=== PATIENT | female | born 1955 | race Caucasian/White ===

== ENCOUNTER 2018-08-16 21:02 | Inpatient (IN) | payer BC ==
[~2018-08-16] VITALS: Ht 157.5 cm; Wt 56.5 kg
[2018-08-16] MEDS ORDERED: ONDANSETRON 4 MG INJ IV STA (22:00)
[2018-08-16] MEDS ORDERED: CIPROFLOXACIN 400MG/D5W 200 ML IVPB STA (22:00)
[2018-08-16] MEDS ORDERED: metroNIDAZOLE 500 MG/NS (PMX) 100 ML IVPB STA (22:00)
[2018-08-16] MEDS ORDERED: morphine 4 MG/ML VIAL IV STA (22:00)
[2018-08-16] MEDS ORDERED: SOD CHLORIDE 0.9% 1,000 ML IV STA (22:00)
[2018-08-16] MEDS ORDERED: IOHEXOL 300MG/ML 150 ML BTL ONE (23:08)
[2018-08-16] MEDS ORDERED: SOD CHLORIDE 0.9% 100 ML ONE (23:08)
[2018-08-16] MEDS ORDERED: MAGNESIUM SULFATE 2 GM/50 ML 50 ML IVPB ONE (23:30)
[2018-08-17] MEDS: POTASSIUM CHLORIDE 100 ML IVPB SCH ×2 (00:02→03:44)
[2018-08-17] MEDS ORDERED: LORAZEPAM 2 MG INJ IV ONE (01:00)
[2018-08-17] MEDS ORDERED: ONDANSETRON 4 MG INJ IV PRN ×2 (01:00→21:00)
[2018-08-17] MEDS ORDERED: ACETAMINOPHEN 325 MG TAB PO PRN (01:00)
--- NOTE | 2018-08-17 01:46 | ERD ---
ER Documentation Chief Complaint Chief Complaint AP W/ N/V S/P ACUTE DIVERTICULITIS DX. DC'D FROM [facility] TODAY HPI 63-year-old female presenting with diffuse abdominal pain. She was recently admitted a few days ago at [facility] after she was diagnosed with perforated diverticulitis. She was treated with IV fluids and antibiotics. She was discharged today with oral antibiotics. However she has had persistent nausea and vomiting with abdominal distention and difficulty urinating. Her abdominal pain is constant, aching, nonradiating, with no alleviating factors. She rates the pain as a 10 out of 10. She denies any fevers or chills. Vomiting is bilious but nonbloody. No associated diarrhea but is constipated. Denies any dysuria. ROS All systems reviewed and are negative except as per history of present illness. Allergies Allergies: Coded Allergies: No Known Allergy (Unverified , 08/16/18) PMhx/Soc Medical and Surgical Hx: pt denies Medical Hx History of Surgery: Yes (BACK surgery) Hx Alcohol Use: No Hx Substance Use: No Hx Tobacco Use: Yes Smoking Status: Current every day smoker FmHx Family History: No diabetes Physical Exam Vitals Vital Signs Date Temp Pulse Resp B/P (MAP) Pulse Ox O2 O2 Flow FiO2 Time Delivery Rate 08/16/18 69 24 136/83 99 Room Air 22:49 (100) 08/16/18 98.3 75 21 148/81 100 21:10 (103) Physical Exam Const: Appears to be in distress secondary to pain, retching Head: Atraumatic Eyes: Normal Conjunctiva ENT: Dry mucous membranes. Normal External Ears, Nose and Mouth. Neck: Full range of motion. No meningismus. Resp: Clear to auscultation bilaterally Cardio: Regular rate and rhythm, no murmurs Abd: Soft, distended, diffuse mild tenderness to palpation, more significant in the suprapubic area. Lower abdominal guarding but no rebound. Hypoactive bowel sounds Skin: No petechiae or rashes Back: No midline or flank tenderness Ext: No cyanosis, or edema Neur: Awake and alert Psych: Normal Mood and Affect Result Diagram: 08/16/18211408/16/182114 Results 24 hrs Laboratory Tests Test 08/16/18 21:15 White Blood Count 10.3 10^3/ul Red Blood Count 4.64 10^6/ul Hemoglobin 14.8 g/dl Hematocrit 40.6 % Mean Corpuscular Volume 87.5 fl Mean Corpuscular Hemoglobin 31.9 pg Mean Corpuscular Hemoglobin Concent 36.5 g/dl Red Cell Distribution Width 12.6 % Platelet Count 220 10^3/UL Mean Platelet Volume 10.7 fl Immature Granulocytes % 0.600 % Neutrophils % 83.4 % Lymphocytes % 9.8 % Monocytes % 5.8 % Eosinophils % 0.2 % Basophils % 0.2 % Nucleated Red Blood Cells % 0.0 /100WBC Immature Granulocytes # 0.060 10^3/ul Neutrophils # 8.6 10^3/ul Lymphocytes # 1.0 10^3/ul Monocytes # 0.6 10^3/ul Eosinophils # 0.0 10^3/ul Basophils # 0.0 10^3/ul Nucleated Red Blood Cells # 0.0 10^3/ul Sodium Level 140 mmol/L Potassium Level 2.9 mmol/L Chloride Level 109 mmol/L Carbon Dioxide Level 21 mmol/L Anion Gap 10 Blood Urea Nitrogen 5 mg/dl Creatinine 0.60 mg/dl Est Glomerular Filtrat Rate mL/min > 60 mL/min Glucose Level 190 mg/dl Calcium Level 9.9 mg/dl Total Bilirubin 1.1 mg/dl Direct Bilirubin 0.00 mg/dl Indirect Bilirubin 1.1 mg/dl Aspartate Amino Transf (AST/SGOT) 18 IU/L Alanine Aminotransferase (ALT/SGPT) 13 IU/L Alkaline Phosphatase 85 IU/L Total Protein 6.6 g/dl Albumin 3.4 g/dl Globulin 3.20 g/dl Albumin/Globulin Ratio 1.06 Lipase 58 U/L Current Medications Medications Dose Sig/Carmelo Start Time Status Last (Trade) Ordered Route PRN Stop Time Admin Dose Reason Admin Sodium 1,000 ml @ Q1H STAT 08/16/18 DC 08/16/18 Chloride 1,000 mls/hr IV 22:00 08/16/18 22:07 22:59 Morphine 4 mg ONCE STAT 08/16/18 DC 08/16/18 Sulfate IV 22:00 08/16/18 22:06 (morphine) 22:02 Ondansetron 4 mg ONCE STAT 08/16/18 DC 08/16/18 HCl (Zofran IV 22:00 08/16/18 22:06 Inj) 22:02 100 ml @ ONCE STAT 08/16/18 DC 08/16/18 Metronidazole 100 mls/hr IVPB 22:00 08/16/18 22:12 22:59 200 ml @ ONCE STAT 08/16/18 DC 08/16/18 Ciprofloxacin 200 mls/hr IVPB 22:00 08/16/18 22:56 / Dextrose 22:59 IV Flush 10 ml STK-MED 08/16/18 DC (NS 10 ml) ONCE .ROUTE 23:08 08/16/18 23:09 Sodium 100 ml @ ud STK-MED 08/16/18 DC Chloride ONCE .ROUTE 23:08/16/18 23:09 Iohexol 150 ml STK-MED 08/16/18 DC (Omnipaque ONCE .ROUTE 23:08/16/18 300mg/ ml) 23:09 Potassium 100 ml @ Q2H IVPB 08/16/18 08/17/18 Chloride 50 mls/hr 23:30 08/17/18 00:02 03:29 Magnesium 50 ml @ 25 ONCE ONCE 08/16/18 DC 08/17/18 Sulfate mls/hr IVPB 23:30 08/17/18 00:02 01:29 Ondansetron 4 mg BRIDGE ORDER 08/17/18 HCl (Zofran PRN IV 01:00 08/18/18 Inj) NAUSEA/VOMITI 00:59 NG 650 mg ER BRIDGE 08/17/18 Acetaminophen PRN PO 01:00 08/18/18 (Tylenol .MILD PAIN 00:59 Tab) 1-3 OR TEMP Lorazepam 1 mg ONCE ONCE 08/17/18 DC 08/17/18 (Ativan) IV 01:00 08/17/18 00:51 01:01 Procedures/MDM EMERGENT LABS AND DIAGNOSTIC STUDIES: Lab Results above were reviewed and interpreted by me. CBC: no anemia or evidence of infection CMP: Hypokalemia. No evidence of acidosis, renal failure, hypoglycemia, liver disease, or biliary obstruction Radiology Results as interpreted by Radiology below were reviewed by Jarvis Momin MD: CT abdomen and pelvis: IMPRESSION: Diffuse mesenteric inflammatory fat stranding throughout the abdomen and pelvis, which can be seen with peritonitis or congestion from chronic liver or heart disease. Findings are most prominent deep in the pelvis. A fluid collection is seen posterior to the uterus, measuring up to 3.7 cm, worrisome for abscess formation. Possible smaller adjacent fluid collection on the right is also present. Recommend comparison with prior imaging. Diffuse wall thickening to multiple small bowel loops, which may be reactive or secondary to enterocolitis. No small bowel obstruction. There is mild pericholecystic fluid, which may be reactive as well. However, cholecystitis can also have this appearance. Nonobstructing right sided nephrolithiasis. Largest stone measures 5 mm. Right greater than left pleural effusions with underlying atelectasis. Initial Nursing notes reviewed. Previous Medical Records requested via the Electronic Health Record. EMERGENCY DEPARTMENT COURSE / MEDICAL DECISION MAKING: Patient is presenting with severe abdominal pain after being diagnosed with perforated diverticulitis. She has intractable vomiting. Vitals were unrema rkable upon arrival, afebrile. CT was done showing evidence of a pelvic abscess. She was treated with IV antibiotics. There is no evidence of sepsis at this time. Given her urinary retention, Mathis was placed. I spoke with the surgeon on-call, who also recommended an NG tube be placed. Patient will require admission and likely IR intervention for her pelvic abscess. She will also require further monitoring and IV antibiotics and hydration. She was noted to be hypokalemic, for which supplementation was ordered in the ER. Critical Care Time: 35 minutes Treatments/Evaluations: Close monitoring and treatment of unstable vital signs, cardiorespiratory, and neurologic status, while maintaining tight balance of fluid, respiratory, and cardiac interventions. This time includes discussing the case with the patient and the patients family. This time does not include all procedures stated elsewhere in this record. This time also includes reviewing old records, labs and radiological studies. This time includes examining and re- examining the patient. Additionally, this time also includes arranging care with admitting and consulting physicians. Accepting Care Team: Current data and ongoing care discussed. Time: Time of admission Primary Provider: Dr. Rice Consulting: Dr. Barone with general surgery Outstanding Data: none Departure Diagnosis: Primary Impression: Intra-abdominal abscess Additional Impressions: History of diverticulitis Urinary retention Hypokalemia Condition: Serious MANAV MOMIN MD Aug 17, 2018 01:46
[2018-08-17 02:09] VITALS: Ht 157.5 cm; Wt 56.5 kg
[2018-08-17 02:30] VITALS: BP 113/58; PULSE 74; RESP 16
[2018-08-17] MEDS ORDERED: VANCOMYCIN 1 GM 250 ML IVPB ONE (03:00)
[2018-08-17] MEDS ORDERED: NACL 0.9% 3 ML SYG IV SCH (03:00)
[2018-08-17] MEDS ORDERED: ALBUTEROL/IPRATROPIUM (NEB) 3 ML AMP HHN PRN (03:00)
[2018-08-17] MEDS ORDERED: VANCOMYCIN IV PER PHARMACY XX SCH (03:00)
[2018-08-17] MEDS ORDERED: ACETAMINOPHEN 650 MG SUPP PR PRN (03:00)
[2018-08-17] MEDS: DEXTROSE 5%-0.45% NACL 1,000 ML IV SCH ×3 (03:44→22:51)
[2018-08-17] MEDS: PIPER-TAZO 3.375 GM IV (PMX) 100 ML IVPB SCH ×4 (06:07→23:21)
[2018-08-17] MEDS: ONDANSETRON 4 MG INJ IV PRN ×2 (06:07→08:38)
--- NOTE | 2018-08-17 06:29 | HP ---
Date/Time of Note Date/Time of Note DATE: 08/17/18 TIME: 06:23 Assessment/Plan VTE Prophylaxis Pharmacological prophylaxis: heparin Lines/Catheters IV Catheter Type (from Nrsg): Peripheral IV Urinary Cath still in place: Yes Reason Cath still needed: terminal illness/intractable pain Assessment/Plan Assessment/Plan 63-year-old female who was diagnosed with perforated diverticulitis with a few days ago at [facility], managed conservatively presents with worsening abdominal pain with CT showing Diffuse mesenteric inflammatory fat stranding throughout the abdomen and pelvis, most prominent deep in the pelvis as well as a collection of fluid posterior to the uterus, measuring up to 3.7 cm, worrisome for abscess formation. Possible smaller adjacent fluid collection on the right is also present. Diffuse wall thickening to multiple small bowel loops, which may be reactive or secondary to enterocolitis. PLAN -Keep n.p.o. with IV fluid -Broad-spectrum IV antibiotic. ID consult -Awaiting surgical eval -Pain management -Replace potassium Result Diagram: 08/17/18 0530 08/16/18 2115 Results 24hrs Laboratory Tests Test 08/16/18 21:15 08/17/18 05:30 White Blood Count 10.3 11.4 H Red Blood Count 4.64 4.14 L Hemoglobin 14.8 13.0 Hematocrit 40.6 36.5 L Mean Corpuscular Volume 87.5 88.2 Mean Corpuscular Hemoglobin 31.9 31.4 Mean Corpuscular Hemoglobin Concent 36.5 35.6 Red Cell Distribution Width 12.6 12.7 Platelet Count 220 189 Mean Platelet Volume 10.7 H 10.2 Immature Granulocytes % 0.600 H 0.700 H Neutrophils % 83.4 H 84.5 H Lymphocytes % 9.8 L 8.4 L Monocytes % 5.8 6.0 Eosinophils % 0.2 0.1 Basophils % 0.2 0.3 Nucleated Red Blood Cells % 0.0 0.0 Immature Granulocytes # 0.060 H 0.080 H Neutrophils # 8.6 H 9.6 H Lymphocytes # 1.0 1.0 Monocytes # 0.6 0.7 Eosinophils # 0.0 0.0 Basophils # 0.0 0.0 Nucleated Red Blood Cells # 0.0 0.0 Sodium Level 140 Potassium Level 2.9 *L Chloride Level 109 Carbon Dioxide Level 21 Anion Gap 10 Blood Urea Nitrogen 5 L Creatinine 0.60 Est Glomerular Filtrat Rate mL/min > 60 Glucose Level 190 Calcium Level 9.9 Total Bilirubin 1.1 Direct Bilirubin 0.00 Indirect Bilirubin 1.1 Aspartate Amino Transf (AST/SGOT) 18 Alanine Aminotransferase (ALT/SGPT) 13 Alkaline Phosphatase 85 Total Protein 6.6 Albumin 3.4 Globulin 3.20 Albumin/Globulin Ratio 1.06 Lipase 58 HPI/ROS Admit Date/Time Admit Date/Time Aug 17, 2018 at 00:33 Hx of Present Illness Patient is a 63-year-old female who was recently diagnosed with perforated diverticulitis presents the ER complaining of abdominal pain. She was just discharged yesterday from [facility] after she was admitted for perforated diverticulitis which was managed conservatively. She was discharged with antibiotic and pain medication, however due to worsening of abdominal pain, she came here for evaluation. CT abdomen/pelvis shows the following: Diffuse mesenteric inflammatory fat stranding throughout the abdomen and pelvis, which can be seen with peritonitis or congestion from chronic liver or heart disease. Findings are most prominent deep in the pelvis. A fluid collection is seen posterior to the uterus, measuring up to 3.7 cm, worrisome for abscess formation. Possible smaller adjacent fluid collection on the right is also present. Recommend comparison with prior imaging. Diffuse wall thickening to multiple small bowel loops, which may be reactive or secondary to enterocolitis. No small bowel obstruction. There is mild pericholecystic fluid, which may be reactive as well. However, cholecystitis can also have this appearance. Nonobstructing right sided nephrolithiasis. Largest stone measures 5 mm. Right greater than left pleural effusions with underlying atelectasis. PMH/Family/Social Past Medical History Past Surgical Hx: other Family History Significant Family History: no pertinent family hx Social History Alcohol Use: none Smoking Status: Never smoker Drug Use: none Exam Constitutional: other (No acute distress) Head: normocephalic, atraumatic Eyes: EOMI, PERRL Respiratory: clear to auscultation, normal air movement Cardiovascular: regular rate and rhythm Gastrointestinal: soft Extremities: normal pulses Medications Current Medications Ondansetron HCl (Zofran Inj) 4 mg BRIDGE ORDER PRN IV NAUSEA/VOMITING; Start 08/17/18 at 01:00; Stop 08/18/18 at 00:59 Acetaminophen (Tylenol Tab) 650 mg ER BRIDGE PRN PO .MILD PAIN 1-3 OR TEMP; Start 08/17/18 at 01:00; Stop 08/18/18 at 00:59 Dextrose/Sodium Chloride 1,000 ml @ 100 mls/hr Q10H IV Last administered on 08/17/18at 03:44; Admin Dose 100 MLS/HR; Start 08/17/18 at 02:51 IV Flush (NS 3 ml) 3 ml PER PROTOCOL IV ; Start 08/17/18 at 03:00 Ondansetron HCl (Zofran Inj) 4 mg Q6H PRN IV NAUSEA/VOMITING Last administered on 08/17/18at 06:07; Admin Dose 4 MG; Start 08/17/18 at 03:00 Acetaminophen (Tylenol Supp) 650 mg Q6H PRN [place] .PAIN 1-3 OR TEMP; Start 08/17/18 at 03:00 Morphine Sulfate (morphine) 3 mg Q4H PRN IV .SEVERE PAIN 5-10; Start 08/17/18 at 03:00 Albuterol/ Ipratropium (Duoneb) 3 ml Q2H RESP THERAPY PRN HHN SHORTNESS OF BREATH; Start 08/17/18 at 03:00 Piperacillin Sod/ Tazobactam Sod 100 ml @ 200 mls/hr Q6 IVPB Last administered on 08/17/18at 06:07; Admin Dose 200 MLS/HR; Start 08/17/18 at 06:00 Vancomycin HCl (Vanco Iv Per Pharmacy) VANCOMYCIN PER PHARMACY PER PROTOCOL XX ; Start 08/17/18 at 03:00 Vancomycin/Sodium Chloride 250 ml @ 125 mls/hr Q12H IVPB ; Start 08/17/18 at 15:00 Miscellaneous Information (*Rx Drug Level Order Reminder*) VANCOMYCIN TROUGH LEVEL 0200 ONCE XX ; Start 08/19/18 at 02:00; Stop 08/19/18 at 02:01 Coded Allergies: No Known Allergy (Unverified , 08/16/18) Social History Smoking Status: Current every day smoker Exam/Review of Systems Vital Signs Vitals Vital Signs Date Temp Pulse Resp B/P (MAP) Pulse Ox O2 O2 Flow FiO2 Time Delivery Rate 08/17/18 98.1 74 16 113/58 95 02:30 (76) 08/16/18 Room Air 22:49 Intake and Output 08/16/18 08/16/18 08/17/18 1515:00 23:00 07:00 IntakeIntake Total 125 ml BalanceBalance 125 ml WILLIE MONTERO MD Aug 17, 2018 06:29
[2018-08-17 07:18] VITALS: BP 124/60; PULSE 96; RESP 17
[2018-08-17] MEDS: morphine 2 MG INJ IV PRN ×2 (08:39→15:00)
--- NOTE | 2018-08-17 11:58 | PN ---
Date/Time of Note Date/Time of Note DATE: 08/17/18 TIME: 11:55 Assessment/Plan VTE Prophylaxis SCD applied (from Nsg): Yes Pharmacological prophylaxis: other Lines/Catheters IV Catheter Type (from Nrsg): Peripheral IV Urinary Cath still in place: Yes Reason Cath still needed: urinary retention Assessment/Plan Hospital Course S: Patient waiting to be seen by surgery team. NG tube removed earlier this a.m. No acute events overnight. O: VS- see below PE: Gen: Lying in bed, no acute distress presently Head: Atraumatic Eyes: Normal Conjunctiva ENT: Less dry mucous membranes. Normal External Ears, Nose and Mouth. Neck: Supple Resp: Clear to auscultation bilaterally Cardio: Regular rate and rhythm, no murmurs Abd: Soft, distended, some tenderness to palpation, more significant in the suprapubic area. Lower abdominal guarding but no rebound. Hypoactive bowel sounds Ext: No bilateral lower extremity edema Neuro: No focal deficits Assessment/Plan: 63-year-old female who was diagnosed with perforated diverticulitis with a few days ago at [facility], managed conservatively presents with worsening abdominal pain with CT showing possible abscess. # Abdominal pain: Again patient with recent history of perforated after colitis: CT scan abdomen pelvis here shows: diffuse mesenteric inflammatory fat stranding throughout the abdomen and pelvis, most prominent deep in the pelvis as well as a collection of fluid posterior to the uterus, measuring up to 3.7 cm, worrisome for abscess formation. Possible smaller adjacent fluid collection on the right is also present. Diffuse wall thickening to multiple small bowel loops, which may be reactive or secondary to enterocolitis. -For now continue to keep n.p.o. with IV fluid -Continue broad-spectrum IV antibiotic. Consider ID consult if worsens -Given CT scan findings, follow-up recommendations from surgical eval -Continue current medications for pain management -Replace potassium as needed Result Diagram: 08/17/18 0508/17/18 0530 Results 24hrs Laboratory Tests Test 08/16/18 21:15 08/17/18 05:30 White Blood Count 10.3 11.4 H Red Blood Count 4.64 4.14 L Hemoglobin 14.8 13.0 Hematocrit 40.6 36.5 L Mean Corpuscular Volume 87.5 88.2 Mean Corpuscular Hemoglobin 31.9 31.4 Mean Corpuscular Hemoglobin Concent 36.5 35.6 Red Cell Distribution Width 12.6 12.7 Platelet Count 220 189 Mean Platelet Volume 10.7 H 10.2 Immature Granulocytes % 0.600 H 0.700 H Neutrophils % 83.4 H 84.5 H Lymphocytes % 9.8 L 8.4 L Monocytes % 5.8 6.0 Eosinophils % 0.2 0.1 Basophils % 0.2 0.3 Nucleated Red Blood Cells % 0.0 0.0 Immature Granulocytes # 0.060 H 0.080 H Neutrophils # 8.6 H 9.6 H Lymphocytes # 1.0 1.0 Monocytes # 0.6 0.7 Eosinophils # 0.0 0.0 Basophils # 0.0 0.0 Nucleated Red Blood Cells # 0.0 0.0 Sodium Level 140 142 Potassium Level 2.9 *L 3.5 Chloride Level 109 113 H Carbon Dioxide Level 21 23 Anion Gap 10 6 Blood Urea Nitrogen 5 L 3 L Creatinine 0.60 0.52 Est Glomerular Filtrat Rate mL/min > 60 > 60 Glucose Level 190 117 # Calcium Level 9.9 8.6 Total Bilirubin 1.1 1.0 Direct Bilirubin 0.00 0.00 Indirect Bilirubin 1.1 1.0 Aspartate Amino Transf (AST/SGOT) 18 12 L Alanine Aminotransferase (ALT/SGPT) 13 17 Alkaline Phosphatase 85 74 Total Protein 6.6 5.7 L Albumin 3.4 2.8 L Globulin 3.20 2.90 Albumin/Globulin Ratio 1.06 0.96 Lipase 58 Phosphorus Level 2.5 Magnesium Level 2.2 Exam/Review of Systems Exam Vitals Vital Signs Date Temp Pulse Resp B/P (MAP) Pulse Ox O2 O2 Flow FiO2 Time Delivery Rate 08/17/18 98.4 96 17 124/60 76 Room Air 07:18 (81) Intake and Output 08/16/18 08/16/18 08/17/18 1414:59 22:59 06:59 IntakeIntake Total 125 ml BalanceBalance 125 ml Results Results 24hrs Laboratory Tests Test 08/16/18 21:15 08/17/18 05:30 White Blood Count 10.3 11.4 H Red Blood Count 4.64 4.14 L Hemoglobin 14.8 13.0 Hematocrit 40.6 36.5 L Mean Corpuscular Volume 87.5 88.2 Mean Corpuscular Hemoglobin 31.9 31.4 Mean Corpuscular Hemoglobin Concent 36.5 35.6 Red Cell Distribution Width 12.6 12.7 Platelet Count 220 189 Mean Platelet Volume 10.7 H 10.2 Immature Granulocytes % 0.600 H 0.700 H Neutrophils % 83.4 H 84.5 H Lymphocytes % 9.8 L 8.4 L Monocytes % 5.8 6.0 Eosinophils % 0.2 0.1 Basophils % 0.2 0.3 Nucleated Red Blood Cells % 0.0 0.0 Immature Granulocytes # 0.060 H 0.080 H Neutrophils # 8.6 H 9.6 H Lymphocytes # 1.0 1.0 Monocytes # 0.6 0.7 Eosinophils # 0.0 0.0 Basophils # 0.0 0.0 Nucleated Red Blood Cells # 0.0 0.0 Sodium Level 140 142 Potassium Level 2.9 *L 3.5 Chloride Level 109 113 H Carbon Dioxide Level 21 23 Anion Gap 10 6 Blood Urea Nitrogen 5 L 3 L Creatinine 0.60 0.52 Est Glomerular Filtrat Rate mL/min > 60 > 60 Glucose Level 190 117 # Calcium Level 9.9 8.6 Total Bilirubin 1.1 1.0 Direct Bilirubin 0.00 0.00 Indirect Bilirubin 1.1 1.0 Aspartate Amino Transf (AST/SGOT) 18 12 L Alanine Aminotransferase (ALT/SGPT) 13 17 Alkaline Phosphatase 85 74 Total Protein 6.6 5.7 L Albumin 3.4 2.8 L Globulin 3.20 2.90 Albumin/Globulin Ratio 1.06 0.96 Lipase 58 Phosphorus Level 2.5 Magnesium Level 2.2 Medications Medication Current Medications Dextrose/Sodium Chloride 1,000 ml @ 100 mls/hr Q10H IV Last administered on 08/17/18at 03:44; Admin Dose 100 MLS/HR; Start 08/17/18 at 02:51 IV Flush (NS 3 ml) 3 ml PER PROTOCOL IV ; Start 08/17/18 at 03:00 Ondansetron HCl (Zofran Inj) 4 mg Q6H PRN IV NAUSEA/VOMITING Last administered on 08/17/18at 08:38; Admin Dose 4 MG; Start 08/17/18 at 03:00 Acetaminophen (Tylenol Supp) 650 mg Q6H PRN [place] .PAIN 1-3 OR TEMP; Start 08/17/18 at 03:00 Morphine Sulfate (morphine) 3 mg Q4H PRN IV .SEVERE PAIN 5-10 Last administered on 08/17/18at 08:39; Admin Dose 3 MG; Start 08/17/18 at 03:00 Albuterol/ Ipratropium (Duoneb) 3 ml Q2H RESP THERAPY PRN HHN SHORTNESS OF BREATH; Start 08/17/18 at 03:00 Piperacillin Sod/ Tazobactam Sod 100 ml @ 200 mls/hr Q6 IVPB Last administered on 08/17/18at 06:07; Admin Dose 200 MLS/HR; Start 08/17/18 at 06:00 Vancomycin HCl (Vanco Iv Per Pharmacy) VANCOMYCIN PER PHARMACY PER PROTOCOL XX ; Start 08/17/18 at 03:00 Vancomycin/Sodium Chloride 250 ml @ 125 mls/hr Q12H IVPB ; Start 08/17/18 at 15:00 Miscellaneous Information (*Rx Drug Level Order Reminder*) VANCOMYCIN TROUGH LEVEL 0200 ONCE XX ; Start 08/19/18 at 02:00; Stop 08/19/18 at 02:01 OK PATEL Aug 17, 2018 11:58
[2018-08-17 14:10] VITALS: BP 108/57; PULSE 75; RESP 16
[2018-08-17] MEDS: VANCOMYCIN 750 MG (PMX) 250 ML IVPB SCH (15:59)
[2018-08-17] MEDS ORDERED: TRIMETHOBENZAMIDE 100 MG/ML VIAL IM PRN (16:00)
[2018-08-17] MEDS ORDERED: ONDANSETRON INJ 8 MG in SOD CHLORIDE 0.9% 50 ML IV PRN (16:30)
[2018-08-17] MEDS: KETOROLAC 15 MG INJ IV PRN (18:30)
[2018-08-17 20:00] VITALS: BP 128/58; PULSE 69; RESP 18
--- NOTE | 2018-08-17 20:14 | CONS ---
Assessment/Plan Assessment/Plan Assessment/Plan (Daily) Acute diverticulitis possible intra-abdominal abscess. Patient is stable we will continue antibiotics. Consultation Date/Type/Reason Admit Date/Time Aug 17, 2018 at 00:33 Date of Consultation: Aug 17, 2018 Type of Consult Surgical Reason for Consultation Acute diverticulitis Date/Time of Note DATE: 08/17/18 TIME: 20:11 Hx of Present Illness 63-year-old female presenting with diffuse abdominal pain. She was recently admitted a few days ago at [facility] after she was diagnosed with perforated diverticulitis. She was treated with IV fluids and antibiotics. She was discharged today with oral antibiotics. However she has had persistent nausea and vomiting with abdominal distention and difficulty urinating. Her abdominal pain is constant, aching, nonradiating, with no alleviating factors. She rates the pain as a 10 out of 10. She denies any fevers or chills. Vomiting is bilious but nonbloody. No associated diarrhea but is constipated. Denies any dysuria. The skin was performed that revealed diffuse inflammatory changes in the abdomen mostly in the lower part, with collection in the pelvis. According to the radiologist this collection cannot be drained. Constitutional: no complaints, improved Eyes: no complaints ENT: no complaints Respiratory: no complaints Cardiovascular: no complaints Gastrointestinal: pain, decreased appetite, nausea, vomiting Genitourinary: no complaints Musculoskeletal: no complaints Skin: no complaints Neurologic: no complaints Endocrine: no complaints Lymphatic: no complaints Psychological: no complaints, nl mood/affect Immunologic: no complaints Past Medical History Medications Current Medications Dextrose/Sodium Chloride 1,000 ml @ 100 mls/hr Q10H IV Last administered on 08/17/18at 03:44; Admin Dose 100 MLS/HR; Start 08/17/18 at 02:51 IV Flush (NS 3 ml) 3 ml PER PROTOCOL IV ; Start 08/17/18 at 03:00 Acetaminophen (Tylenol Supp) 650 mg Q6H PRN [place] .PAIN 1-3 OR TEMP; Start 08/17/18 at 03:00 Albuterol/ Ipratropium (Duoneb) 3 ml Q2H RESP THERAPY PRN HHN SHORTNESS OF BREATH; Start 08/17/18 at 03:00 Piperacillin Sod/ Tazobactam Sod 100 ml @ 200 mls/hr Q6 IVPB Last administered on 08/17/18at 18:29; Admin Dose 200 MLS/HR; Start 08/17/18 at 06:00 Vancomycin HCl (Vanco Iv Per Pharmacy) VANCOMYCIN PER PHARMACY PER PROTOCOL XX ; Start 08/17/18 at 03:00 Vancomycin/Sodium Chloride 250 ml @ 125 mls/hr Q12H IVPB Last administered on 08/17/18at 15:59; Admin Dose 125 MLS/HR; Start 08/17/18 at 15:00 Miscellaneous Information (*Rx Drug Level Order Reminder*) VANCOMYCIN TROUGH LEVEL 1400 ONCE XX ; Start 08/18/18 at 14:00; Stop 08/18/18 at 14:01 Trimethobenzamide HCl (Tigan) 200 mg Q6H PRN IM NAUSEA AND/OR VOMITING; Start 08/17/18 at 16:00 Ketorolac Tromethamine (Toradol) 7.5 mg Q8H PRN IV PAIN Last administered on 08/17/18at 18:30; Admin Dose 7.5 MG; Start 08/17/18 at 16:00; Stop 08/20/18 at 15:59 Morphine Sulfate (morphine) 2 mg Q4H PRN IV .SEVERE PAIN 5-10; Start 08/17/18 at 19:00 Ondansetron HCl 8 mg/Sodium Chloride 54 ml @ 216 mls/hr Q6H PRN IV NAUSEA AND/OR VOMITING; Start 08/17/18 at 16:30 Allergies: Coded Allergies: No Known Allergy (Unverified , 08/16/18) Social History Smoking Status: Current every day smoker Exam/Review of Systems Exam Vitals Vital Signs Date Temp Pulse Resp B/P (MAP) Pulse Ox O2 O2 Flow FiO2 Time Delivery Rate 08/17/18 98.0 75 16 108/57 99 Room Air 14:10 (74) Intake and Output 08/16/18 08/16/18 08/17/18 1515:00 23:00 07:00 IntakeIntake Total 125 ml BalanceBalance 125 ml Constitutional: alert, oriented, well developed Psych: no complaints, nl mood/affect Head: normocephalic, atraumatic Eyes: nl conjunctiva, EOMI, nl lids, nl sclera, PERRL ENMT: nl external ears & nose, nl lips & teeth, nl nasal mucosa & septum Neck: supple, non-tender Respiratory: clear to auscultation, normal air movement Cardiovascular: regular rate and rhythm, nl pulses Gastrointestinal: other (Abdomen is completely soft however tender in the lower abdomen most on the right lower quadrant. No rebound.) Musculoskeletal: nl extremities to inspection, nl gait and stance Extremities: normal pulses Neurological: FURNACE FEEDER II-XII intact, nl mental status, nl speech, nl strength Skin: nl turgor; No rash or lesions Lymph: nl lymph nodes Results Result Diagram: 08/17/1830 08/17/18 0530 Results 24hrs Laboratory Tests Test 08/16/18 21:15 08/17/18 05:30 08/17/18 15:39 White Blood Count 10.3 11.4 H Red Blood Count 4.64 4.14 L Hemoglobin 14.8 13.0 Hematocrit 40.6 36.5 L Mean Corpuscular Volume 87.5 88.2 Mean Corpuscular Hemoglobin 31.9 31.4 Mean Corpuscular Hemoglobin Concent 36.5 35.6 Red Cell Distribution Width 12.6 12.7 Platelet Count 220 189 Mean Platelet Volume 10.7 H 10.2 Immature Granulocytes % 0.600 H 0.700 H Neutrophils % 83.4 H 84.5 H Lymphocytes % 9.8 L 8.4 L Monocytes % 5.8 6.0 Eosinophils % 0.2 0.1 Basophils % 0.2 0.3 Nucleated Red Blood Cells % 0.0 0.0 Immature Granulocytes # 0.060 H 0.080 H Neutrophils # 8.6 H 9.6 H Lymphocytes # 1.0 1.0 Monocytes # 0.6 0.7 Eosinophils # 0.0 0.0 Basophils # 0.0 0.0 Nucleated Red Blood Cells # 0.0 0.0 Sodium Level 140 142 Potassium Level 2.9 *L 3.5 Chloride Level 109 113 H Carbon Dioxide Level 21 23 Anion Gap 10 6 Blood Urea Nitrogen 5 L 3 L Creatinine 0.60 0.52 Est Glomerular Filtrat Rate mL/min > 60 > 60 Glucose Level 190 117 # Calcium Level 9.9 8.6 Total Bilirubin 1.1 1.0 Direct Bilirubin 0.00 0.00 Indirect Bilirubin 1.1 1.0 Aspartate Amino Transf (AST/SGOT) 18 12 L Alanine Aminotransferase (ALT/SGPT) 13 17 Alkaline Phosphatase 85 74 Total Protein 6.6 5.7 L Albumin 3.4 2.8 L Globulin 3.20 2.90 Albumin/Globulin Ratio 1.06 0.96 Lipase 58 Phosphorus Level 2.5 Magnesium Level 2.2 Prothrombin Time 15.5 H Prothrombin Time Ratio 1.2 INR International Normalized Ratio 1.22 Activated Partial Thromboplast Time 33.5 Medications Medication Current Medications Dextrose/Sodium Chloride 1,000 ml @ 100 mls/hr Q10H IV Last administered on 08/17/18at 03:44; Admin Dose 100 MLS/HR; Start 08/17/18 at 02:51 IV Flush (NS 3 ml) 3 ml PER PROTOCOL IV ; Start 08/17/18 at 03:00 Acetaminophen (Tylenol Supp) 650 mg Q6H PRN [place] .PAIN 1-3 OR TEMP; Start 08/17/18 at 03:00 Albuterol/ Ipratropium (Duoneb) 3 ml Q2H RESP THERAPY PRN HHN SHORTNESS OF BREATH; Start 08/17/18 at 03:00 Piperacillin Sod/ Tazobactam Sod 100 ml @ 200 mls/hr Q6 IVPB Last administered on 08/17/18at 18:29; Admin Dose 200 MLS/HR; Start 08/17/18 at 06:00 Vancomycin HCl (Vanco Iv Per Pharmacy) VANCOMYCIN PER PHARMACY PER PROTOCOL XX ; Start 08/17/18 at 03:00 Vancomycin/Sodium Chloride 250 ml @ 125 mls/hr Q12H IVPB Last administered on 08/17/18at 15:59; Admin Dose 125 MLS/HR; Start 08/17/18 at 15:00 Miscellaneous Information (*Rx Drug Level Order Reminder*) VANCOMYCIN TROUGH LEVEL 1400 ONCE XX ; Start 08/18/18 at 14:00; Stop 08/18/18 at 14:01 Trimethobenzamide HCl (Tigan) 200 mg Q6H PRN IM NAUSEA AND/OR VOMITING; Start 08/17/18 at 16:00 Ketorolac Tromethamine (Toradol) 7.5 mg Q8H PRN IV PAIN Last administered on 08/17/18at 18:30; Admin Dose 7.5 MG; Start 08/17/18 at 16:00; Stop 08/20/18 at 15:59 Morphine Sulfate (morphine) 2 mg Q4H PRN IV .SEVERE PAIN 5-10; Start 08/17/18 at 19:00 Ondansetron HCl 8 mg/Sodium Chloride 54 ml @ 216 mls/hr Q6H PRN IV NAUSEA AND/ OR VOMITING; Start 08/17/18 at 16:30 PRABHA GRIFFITHS MD Aug 17, 2018 20:14
[2018-08-18 02:35] VITALS: BP 116/71; PULSE 72; RESP 19
[2018-08-18] MEDS: VANCOMYCIN 750 MG (PMX) 250 ML IVPB SCH ×2 (02:39→16:13)
[2018-08-18] MEDS: KETOROLAC 15 MG INJ IV PRN ×3 (04:01→21:46)
[2018-08-18] MEDS: PIPER-TAZO 3.375 GM IV (PMX) 100 ML IVPB SCH ×4 (06:07→23:45)
[2018-08-18 08:00] VITALS: BP 126/73; PULSE 69; RESP 18
[2018-08-18] MEDS: DEXTROSE 5%-0.45% NACL 1,000 ML IV SCH ×3 (08:33→18:51)
--- NOTE | 2018-08-18 13:37 | PN ---
Date/Time of Note Date/Time of Note DATE: 08/18/18 TIME: 13:36 Assessment/Plan Lines/Catheters IV Catheter Type (from Nrs): Peripheral IV Mathis in Place (from Nrsg): Yes Assessment/Plan Assessment/Plan Acute diverticulitis with intra-abdominal abscess, continue antibiotics n.p.o. Subjective 24 Hr Interval Summary Patient complains of abdominal pain. Afebrile. Vitals stable. Physical exam reveals absolutely soft abdomen not tender however the patient is after IV pain medication. White blood cells decreased. Exam/Review of Systems Vital Signs Vitals Vital Signs Date Temp Pulse Resp B/P (MAP) Pulse Ox O2 O2 Flow FiO2 Time Delivery Rate 08/18/18 98.3 69 18 126/73 95 08:00 (90) 08/17/18 Room Air 14:10 Intake and Output 08/17/18 08/17/18 08/18/18 1515:00 23:00 07:00 IntakeIntake Total 450 ml 750 ml OutputOutput Total 1900 ml 630 ml 400 ml BalanceBalance -1900 ml -180 ml 350 ml Results Result Diagram: 08/18/18 0547 08/18/18 0547 PRABHA GRIFFITHS MD Aug 18, 2018 13:37
[2018-08-18 14:00] VITALS: BP 132/63; PULSE 62; RESP 17
[2018-08-18] MEDS ORDERED: POTASSIUM CHLORIDE (SR) 20 MEQ TAB PO STA (15:14)
--- NOTE | 2018-08-18 15:18 | PN ---
Date/Time of Note Date/Time of Note DATE: 08/18/18 TIME: 15:18 Assessment/Plan VTE Prophylaxis Risk score (from Nsg)>0 risk: 2 SCD applied (from Nsg): Yes Pharmacological prophylaxis: other Lines/Catheters IV Catheter Type (from Nrsg): Peripheral IV Urinary Cath still in place: Yes Reason Cath still needed: urinary retention Assessment/Plan Hospital Course S: Patient still n.p.o., seen by surgery team earlier today. No acute events overnight O: VS- see below PE: Gen: Lying in bed, no acute distress presently Head: Atraumatic Eyes: Normal Conjunctiva ENT: Less dry mucous membranes. Normal External Ears, Nose and Mouth. Neck: Supple Resp: Clear to auscultation bilaterally Cardio: Regular rate and rhythm, no murmurs Abd: Soft, distended, some tenderness to palpation, Lower abdominal guarding but no rebound. Hypoactive bowel sounds Ext: No bilateral lower extremity edema Neuro: No focal deficits Assessment/Plan: 63-year-old female who was diagnosed with perforated diverticulitis with a few days ago at [facility], managed conservatively presents with worsening abdominal pain with CT showing possible abscess. # Abdominal pain: Again patient with recent history of perforated after colitis: CT scan abdomen pelvis here shows: diffuse mesenteric inflammatory fat stranding throughout the abdomen and pelvis, most prominent deep in the pelvis as well as a collection of fluid posterior to the uterus, measuring up to 3.7 cm, worrisome for abscess formation. Possible smaller adjacent fluid collection on the right is also present. Diffuse wall thickening to multiple small bowel loops, which may be reactive or secondary to enterocolitis. -For now continue to keep n.p.o. with IV fluid, per discussion with interventional radiology team they recommend repeating CT scan in 1 to 2 days to see if there is been any change in the size of the abscess. At that time they will decide whether to perform CT-guided drainage or not. -Continue broad-spectrum IV antibiotic. Consider ID consult if worsens - Follow-up further recommendations from surgical eval -Continue current medications for pain management -Replace potassium as needed Result Diagram: 08/18/18 0547 08/18/18 0547 Results 24hrs Laboratory Tests Test 08/17/18 15:39 08/18/18 05:47 Prothrombin Time 15.5 H Prothrombin Time Ratio 1.2 INR International Normalized Ratio 1.22 Activated Partial Thromboplast Time 33.5 White Blood Count 9.9 Red Blood Count 3.72 L Hemoglobin 11.9 L Hematocrit 32.9 L Mean Corpuscular Volume 88.4 Mean Corpuscular Hemoglobin 32.0 Mean Corpuscular Hemoglobin Concent 36.2 Red Cell Distribution Width 12.8 Platelet Count 189 Mean Platelet Volume 10.5 H Immature Granulocytes % 1.000 H Neutrophils % 74.2 Lymphocytes % 16.3 Monocytes % 6.5 Eosinophils % 1.5 Basophils % 0.5 Nucleated Red Blood Cells % 0.0 Immature Granulocytes # 0.100 H Neutrophils # 7.3 Lymphocytes # 1.6 Monocytes # 0.6 Eosinophils # 0.2 Basophils # 0.1 Nucleated Red Blood Cells # 0.0 Sodium Level 142 Potassium Level 3.0 L Chloride Level 114 H Carbon Dioxide Level 24 Anion Gap 4 L Blood Urea Nitrogen 7 Creatinine 0.60 Est Glomerular Filtrat Rate mL/min > 60 Glucose Level 90 Calcium Level 8.9 Phosphorus Level 2.7 Magnesium Level 2.0 Exam/Review of Systems Exam Vitals Vital Signs Date Temp Pulse Resp B/P (MAP) Pulse Ox O2 O2 Flow FiO2 Time Delivery Rate 08/18/18 98.3 69 18 126/73 95 08:00 (90) 08/17/18 Room Air 14:10 Intake and Output 08/17/18 08/17/18 08/18/18 1515:00 23:00 07:00 IntakeIntake Total 450 ml 750 ml OutputOutput Total 1900 ml 630 ml 400 ml BalanceBalance -1900 ml -180 ml 350 ml Results Results 24hrs Laboratory Tests Test 08/17/18 15:39 08/18/18 05:47 Prothrombin Time 15.5 H Prothrombin Time Ratio 1.2 INR International Normalized Ratio 1.22 Activated Partial Thromboplast Time 33.5 White Blood Count 9.9 Red Blood Count 3.72 L Hemoglobin 11.9 L Hematocrit 32.9 L Mean Corpuscular Volume 88.4 Mean Corpuscular Hemoglobin 32.0 Mean Corpuscular Hemoglobin Concent 36.2 Red Cell Distribution Width 12.8 Platelet Count 189 Mean Platelet Volume 10.5 H Immature Granulocytes % 1.000 H Neutrophils % 74.2 Lymphocytes % 16.3 Monocytes % 6.5 Eosinophils % 1.5 Basophils % 0.5 Nucleated Red Blood Cells % 0.0 Immature Granulocytes # 0.100 H Neutrophils # 7.3 Lymphocytes # 1.6 Monocytes # 0.6 Eosinophils # 0.2 Basophils # 0.1 Nucleated Red Blood Cells # 0.0 Sodium Level 142 Potassium Level 3.0 L Chloride Level 114 H Carbon Dioxide Level 24 Anion Gap 4 L Blood Urea Nitrogen 7 Creatinine 0.60 Est Glomerular Filtrat Rate mL/min > 60 Glucose Level 90 Calcium Level 8.9 Phosphorus Level 2.7 Magnesium Level 2.0 Medications Medication Current Medications Dextrose/Sodium Chloride 1,000 ml @ 100 mls/hr Q10H IV Last administered on 08/18/18at 12:05; Admin Dose 100 MLS/HR; Start 08/17/18 at 02:51 IV Flush (NS 3 ml) 3 ml PER PROTOCOL IV ; Start 08/17/18 at 03:00 Acetaminophen (Tylenol Supp) 650 mg Q6H PRN [place] .PAIN 1-3 OR TEMP; Start 08/17/18 at 03:00 Albuterol/ Ipratropium (Duoneb) 3 ml Q2H RESP THERAPY PRN HHN SHORTNESS OF BREATH; Start 08/17/18 at 03:00 Piperacillin Sod/ Tazobactam Sod 100 ml @ 200 mls/hr Q6 IVPB Last administered on 08/18/18at 12:31; Admin Dose 200 MLS/HR; Start 08/17/18 at 06:00 Vancomycin HCl (Vanco Iv Per Pharmacy) VANCOMYCIN PER PHARMACY PER PROTOCOL XX ; Start 08/17/18 at 03:00 Vancomycin/Sodium Chloride 250 ml @ 125 mls/hr Q12H IVPB Last administered on 08/18/18at 02:39; Admin Dose 125 MLS/HR; Start 08/17/18 at 15:00 Trimethobenzamide HCl (Tigan) 200 mg Q6H PRN IM NAUSEA AND/OR VOMITING; Start 08/17/18 at 16:00 Ketorolac Tromethamine (Toradol) 7.5 mg Q8H PRN IV PAIN Last administered on 08/18/18at 12:01; Admin Dose 7.5 MG; Start 08/17/18 at 16:00; Stop 08/20/18 at 15:59 Morphine Sulfate (morphine) 2 mg Q4H PRN IV .SEVERE PAIN 5-10; Start 08/17/18 at 19:00 Ondansetron HCl 8 mg/Sodium Chloride 54 ml @ 216 mls/hr Q6H PRN IV NAUSEA AND/OR VOMITING; Start 08/17/18 at 16:30 Potassium Chloride (Klor-Con 20) 40 meq ONCE STAT PO ; Start 08/18/18 at 15:14; Stop 08/18/18 at 15:15; Status OK HARRISON Aug 18, 2018 15:18
[2018-08-18] MEDS: morphine 2 MG INJ IV PRN ×2 (15:22→19:22)
[2018-08-18] MEDS ORDERED: HYDROCODONE/APAP (5/325) TAB PO ONE (19:00)
[2018-08-18 20:09] VITALS: BP 144/60; PULSE 65; RESP 18
[2018-08-19] MEDS: VANCOMYCIN 750 MG (PMX) 250 ML IVPB SCH ×3 (00:43→18:07)
[2018-08-19 02:36] VITALS: BP 113/59; PULSE 63; RESP 20
[2018-08-19] MEDS: morphine 4 MG/ML VIAL IV PRN (02:58)
[2018-08-19] MEDS ORDERED: HYDROCODONE/APAP (10/325) TAB PO ONE (04:30)
[2018-08-19] MEDS: DEXTROSE 5%-0.45% NACL 1,000 ML IV SCH ×3 (04:51→23:53)
[2018-08-19] MEDS: PIPER-TAZO 3.375 GM IV (PMX) 100 ML IVPB SCH ×4 (05:19→23:53)
[2018-08-19] MEDS: KETOROLAC 15 MG INJ IV PRN ×3 (07:54→23:53)
[2018-08-19 08:00] VITALS: BP 137/71; PULSE 86; RESP 18
[2018-08-19] MEDS: HYDROCODONE/APAP (10/325) TAB PO PRN ×2 (12:35→19:39)
--- NOTE | 2018-08-19 13:34 | PN ---
Date/Time of Note Date/Time of Note DATE: 08/19/18 TIME: 13:34 Assessment/Plan VTE Prophylaxis Risk score (from Nsg)>0 risk: 2 SCD applied (from Nsg): Yes Pharmacological prophylaxis: other Lines/Catheters IV Catheter Type (from Nrsg): Peripheral IV Urinary Cath still in place: Yes Reason Cath still needed: urinary retention Assessment/Plan Hospital Course S: Patient still n.p.o. had no acute events overnight, less abdominal pain symptoms today. O: VS- see below PE: Gen: Lying in bed, no acute distress presently Head: Atraumatic Eyes: Normal Conjunctiva ENT: Less dry mucous membranes. Normal External Ears, Nose and Mouth. Neck: Supple Resp: Clear to auscultation bilaterally Cardio: Regular rate and rhythm, no murmurs Abd: Soft, less distended, still some slight tenderness to palpation, Lower abdominal guarding but no rebound. Hypoactive bowel sounds Ext: No bilateral lower extremity edema Neuro: No focal deficits Assessment/Plan: 63-year-old female who was diagnosed with perforated diverticulitis with a few days ago at [facility], managed conservatively presents with worsening abdominal pain with CT showing possible abscess. # Abdominal pain: Again patient with recent history of perforated after colitis: CT scan abdomen pelvis here shows: diffuse mesenteric inflammatory fat stranding throughout the abdomen and pelvis, most prominent deep in the pelvis as well as a collection of fluid posterior to the uterus, measuring up to 3.7 cm, worrisome for abscess formation. Possible smaller adjacent fluid collection on the right is also present. Diffuse wall thickening to multiple small bowel loops, which may be reactive or secondary to enterocolitis. -For now continue to keep n.p.o. with IV fluid, per discussion with interventional radiology team they recommend repeating CT scan 24 hours to see if there is been any change in the size of the abscess. At that time they will decide whether to perform CT-guided drainage or not. -Continue broad-spectrum IV antibiotic. Consider ID consult if worsens - Follow-up further recommendations from surgical eval -Continue current medications for pain management -Replace potassium as needed Result Diagram: 08/18/18 0547 08/18/18 0547 Results 24hrs Laboratory Tests Test 08/18/18 14:13 Vancomycin Level Trough 6.6 L Exam/Review of Systems Exam Vitals Vital Signs Date Temp Pulse Resp B/P (MAP) Pulse Ox O2 O2 Flow FiO2 Time Delivery Rate 08/19/18 98.6 86 18 137/71 96 08:00 (93) 08/18/18 Room Air 14:00 Intake and Output 08/18/18 08/18/18 08/19/18 1515:00 23:00 07:00 IntakeIntake Total 700 ml 350 ml 1450 ml OutputOutput Total 600 ml 1000 ml BalanceBalance 700 ml -250 ml 450 ml Results Results 24hrs Laboratory Tests Test 08/18/18 14:13 Vancomycin Level Trough 6.6 L Medications Medication Current Medications Dextrose/Sodium Chloride 1,000 ml @ 100 mls/hr Q10H IV Last administered on 08/19/18at 06:12; Admin Dose 100 MLS/HR; Start 08/17/18 at 02:51 IV Flush (NS 3 ml) 3 ml PER PROTOCOL IV ; Start 08/17/18 at 03:00 Acetaminophen (Tylenol Supp) 650 mg Q6H PRN [place] .PAIN 1-3 OR TEMP; Start 08/17/18 at 03:00 Albuterol/ Ipratropium (Duoneb) 3 ml Q2H RESP THERAPY PRN HHN SHORTNESS OF BREATH; Start 08/17/18 at 03:00 Piperacillin Sod/ Tazobactam Sod 100 ml @ 200 mls/hr Q6 IVPB Last administered on 08/19/18at 12:31; Admin Dose 200 MLS/HR; Start 08/17/18 at 06:00 Vancomycin HCl (Vanco Iv Per Pharmacy) VANCOMYCIN PER PHARMACY PER PROTOCOL XX ; Start 08/17/18 at 03:00 Trimethobenzamide HCl (Tigan) 200 mg Q6H PRN IM NAUSEA AND/OR VOMITING; Start 08/17/18 at 16:00 Ketorolac Tromethamine (Toradol) 7.5 mg Q8H PRN IV PAIN Last administered on 08/19/18at 07:54; Admin Dose 7.5 MG; Start 08/17/18 at 16:00; Stop 08/20/18 at 15:59 Ondansetron HCl 8 mg/Sodium Chloride 54 ml @ 216 mls/hr Q6H PRN IV NAUSEA AND/OR VOMITING; Start 08/17/18 at 16:30 Vancomycin/Sodium Chloride 250 ml @ 125 mls/hr Q8H IVPB Last administered on 08/19/18at 09:06; Admin Dose 125 MLS/HR; Start 08/18/18 at 17:00 Miscellaneous Information (*Rx Drug Level Order Reminder*) VANCO TR LEVEL PRIOR... 1600 ONCE XX ; Start 08/19/18 at 16:00; Stop 08/19/18 at 16:01 Morphine Sulfate (morphine) 4 mg Q4H PRN IV .SEVERE PAIN 5-10 Last administered on 08/19/18at 02:58; Admin Dose 4 MG; Start 08/18/18 at 23:00 Acetaminophen/ Hydrocodone Bitart ([place] (10/325)) 1 tab Q6H PRN PO MODERATE PAIN LEVEL 4-6 Last administered on 08/19/18at 12:35; Admin Dose 1 TAB; Start 08/19/18 at 12:00 [place] PATEL Aug 19, 2018 13:34
[2018-08-19 14:00] VITALS: BP 132/60; PULSE 72; RESP 20
--- NOTE | 2018-08-19 16:45 | PN ---
Date/Time of Note Date/Time of Note DATE: 08/19/18 TIME: 16:45 Assessment/Plan Lines/Catheters IV Catheter Type (from Nrsg): Peripheral IV Mathis in Place (from Nrsg): Yes Subjective 24 Hr Interval Summary Patient is stable, pain is controlled, abdomen is soft. Continue the same care. Exam/Review of Systems Vital Signs Vitals Vital Signs Date Temp Pulse Resp B/P (MAP) Pulse Ox O2 O2 Flow FiO2 Time Delivery Rate 08/19/18 98.8 72 20 132/60 96 14:00 (84) 08/18/18 Room Air 14:00 Intake and Output 08/18/18 08/18/18 08/19/18 1515:00 23:00 07:00 IntakeIntake Total 700 ml 350 ml 1450 ml OutputOutput Total 600 ml 1000 ml BalanceBalance 700 ml -250 ml 450 ml Results Result Diagram: 08/18/18 0547 08/18/18 0547 PRABHA GRIFFITHS MD Aug 19, 2018 16:45
[2018-08-19 20:34] VITALS: BP 146/66; PULSE 69; RESP 18
[2018-08-20] MEDS: VANCOMYCIN 750 MG (PMX) 250 ML IVPB SCH ×3 (01:23→18:45)
[2018-08-20 03:10] VITALS: BP 127/62; PULSE 61; RESP 16
[2018-08-20] MEDS: HYDROCODONE/APAP (10/325) TAB PO PRN ×3 (03:52→19:36)
[2018-08-20] MEDS: PIPER-TAZO 3.375 GM IV (PMX) 100 ML IVPB SCH ×4 (05:41→23:54)
[2018-08-20] MEDS: KETOROLAC 15 MG INJ IV PRN ×2 (08:00→23:51)
[2018-08-20 08:26] VITALS: BP 135/62; PULSE 66; RESP 18
[2018-08-20] MEDS ORDERED: POTASSIUM CHLORIDE 20 MEQ POWDER FOR ORAL SOLN PO ONE (09:30)
[2018-08-20] MEDS ORDERED: MAGNESIUM SULFATE 2 GM/50 ML 50 ML IVPB ONE (10:00)
[2018-08-20] MEDS: POTASSIUM CHLORIDE 50 ML IVPB SCH ×3 (13:03→15:50)
[2018-08-20 14:00] VITALS: BP 128/63; PULSE 69; RESP 19
--- NOTE | 2018-08-20 16:27 | PN ---
Date/Time of Note Date/Time of Note DATE: 08/20/18 TIME: 16:23 Assessment/Plan VTE Prophylaxis Risk score (from Nsg)>0 risk: 2 SCD applied (from Nsg): Yes Pharmacological prophylaxis: NA/contraindicated Pharm contraindication: low risk/ambulating Lines/Catheters IV Catheter Type (from Nrsg): Peripheral IV Urinary Cath still in place: No Assessment/Plan Assessment/Plan 63-year-old woman who was diagnosed with perforated diverticulitis with a few days ago at [facility], managed conservatively presents with worsening abdominal pain with CT showing possible abscess. # Abdominal pain: Patient with recent history of perforated diverticulitis: CT scan abdomen pelvis here shows: diffuse mesenteric inflammatory fat stranding throughout the abdomen and pelvis, most prominent deep in the pelvis as well as a collection of fluid posterior to the uterus, measuring up to 3.7 cm, worrisome for abscess formation. Possible smaller adjacent fluid collection on the right is also present. Diffuse wall thickening to multiple small bowel loops, which may be reactive or secondary to enterocolitis. - Will repeat CT today to see if abscess has changed in size. - Symptoms improving. Will try clear liquid diet. - Continue broad-spectrum IV antibiotic. -Continue current medications for pain management -Replace potassium as needed Result Diagram: 08/20/1862008/20/18620 Subjective 24 Hr Interval Summary Free Text/Dictation No acute overnight events. Continues to have stabbing RLQ -> R flank pain. She is hungry. Requiring Gillespie. Exam/Review of Systems Exam Vitals Vital Signs Date Temp Pulse Resp B/P (MAP) Pulse Ox O2 O2 Flow FiO2 Time Delivery Rate 08/20/18 98.7 69 19 128/63 95 14:00 (84) 08/18/18 Room Air 14:00 Intake and Output 08/19/18 08/19/18 08/20/18 1515:00 23:00 07:00 IntakeIntake Total 350 ml 950 ml 2350 ml OutputOutput Total 2050 ml 1200 ml BalanceBalance 350 ml -1100 ml 1150 ml Exam Gen: Elderly woman lying in bed, no acute distress presently Head: Atraumatic Eyes: Normal Conjunctiva ENT: Moist mucous membranes. Normal External Ears, Nose and Mouth. Neck: Supple Resp: Clear to auscultation bilaterally Cardio: Regular rate and rhythm, no murmurs Abd: Soft, nondistended, normoactive bowel sounds, mild LLQ tenderness with no guarding. Ext: No bilateral lower extremity edema Results Results 24hrs Laboratory Tests Test 08/20/18 06:21 08/20/18 09:00 White Blood Count 12.8 #H Red Blood Count 3.91 L Hemoglobin 12.2 Hematocrit 34.3 L Mean Corpuscular Volume 87.7 Mean Corpuscular Hemoglobin 31.2 Mean Corpuscular Hemoglobin Concent 35.6 Red Cell Distribution Width 13.1 Platelet Count 254 # Mean Platelet Volume 10.4 Immature Granulocytes % 1.100 H Neutrophils % 82.7 H Lymphocytes % 9.1 L Monocytes % 6.1 Eosinophils % 0.7 Basophils % 0.3 Nucleated Red Blood Cells % 0.0 Immature Granulocytes # 0.140 H Neutrophils # 10.6 H Lymphocytes # 1.2 Monocytes # 0.8 Eosinophils # 0.1 Basophils # 0.0 Nucleated Red Blood Cells # 0.0 Sodium Level 143 Potassium Level 2.9 *L Chloride Level 109 Carbon Dioxide Level 27 Anion Gap 7 Blood Urea Nitrogen 5 L Creatinine 0.66 Est Glomerular Filtrat Rate mL/min > 60 Glucose Level 64 L Calcium Level 9.0 Phosphorus Level 3.1 Magnesium Level 1.8 Urine Color YELLOW Urine Clarity CLEAR Urine pH 7.0 Urine Specific [place] 1.012 Urine Ketones 1+ H Urine Nitrite NEGATIVE Urine Bilirubin NEGATIVE Urine Urobilinogen 2+ H Urine Leukocyte Esterase TRACE A Urine Microscopic RBC 23 H Urine Microscopic WBC 13 H Urine Hemoglobin 2+ H Urine Glucose NEGATIVE Urine Total Protein NEGATIVE Medications Medication Current Medications IV Flush (NS 3 ml) 3 ml PER PROTOCOL IV ; Start 08/17/18 at 03:00 Acetaminophen (Tylenol Supp) 650 mg Q6H PRN [place] .PAIN 1-3 OR TEMP; Start 08/17/18 at 03:00 Albuterol/ Ipratropium (Duoneb) 3 ml Q2H RESP THERAPY PRN HHN SHORTNESS OF BREATH; Start 08/17/18 at 03:00 Piperacillin Sod/ Tazobactam Sod 100 ml @ 200 mls/hr Q6 IVPB Last administered on 08/20/18at 12:13; Admin Dose 200 MLS/HR; Start 08/17/18 at 06:00 Vancomycin HCl (Vanco Iv Per Pharmacy) VANCOMYCIN PER PHARMACY PER PROTOCOL XX ; Start 08/17/18 at 03:00 Trimethobenzamide HCl (Tigan) 200 mg Q6H PRN IM NAUSEA AND/OR VOMITING; Start 08/17/18 at 16:00 Ondansetron HCl 8 mg/Sodium Chloride 54 ml @ 216 mls/hr Q6H PRN IV NAUSEA AND/OR VOMITING; Start 08/17/18 at 16:30 Vancomycin/Sodium Chloride 250 ml @ 125 mls/hr Q8H IVPB Last administered on 08/20/18at 09:01; Admin Dose 125 MLS/HR; Start 08/18/18 at 17:00 Morphine Sulfate (morphine) 4 mg Q4H PRN IV .SEVERE PAIN 5-10 Last administered on 08/19/18at 02:58; Admin Dose 4 MG; Start 08/18/18 at 23:00 Acetaminophen/ Hydrocodone Bitart ([place] (10/325)) 1 tab Q6H PRN PO MODERATE PAIN LEVEL 4-6 Last administered on 08/20/18at 12:55; Admin Dose 1 TAB; Start 08/19/18 at 12:00 KESHIA CHO MD Aug 20, 2018 16:27
[2018-08-20] MEDS ORDERED: SOD CHLORIDE 0.9% 100 ML ONE (17:45)
[2018-08-20] MEDS ORDERED: IOHEXOL 300MG/ML 150 ML BTL ONE (17:45)
[2018-08-20 20:00] VITALS: BP 145/67; PULSE 66; RESP 19
[2018-08-21] MEDS: VANCOMYCIN 750 MG (PMX) 250 ML IVPB SCH ×3 (01:39→17:37)
[2018-08-21 02:00] VITALS: BP 142/65; PULSE 62; RESP 17
[2018-08-21] MEDS: PIPER-TAZO 3.375 GM IV (PMX) 100 ML IVPB SCH ×3 (05:24→20:25)
[2018-08-21] MEDS: HYDROCODONE/APAP (10/325) TAB PO PRN (05:24)
[2018-08-21 07:47] VITALS: BP 132/62; PULSE 63; RESP 18
[2018-08-21] MEDS: KETOROLAC 15 MG INJ IV PRN ×3 (10:33→23:46)
--- NOTE | 2018-08-21 13:06 | PN ---
Date/Time of Note Date/Time of Note DATE: 08/21/18 TIME: 13:05 Assessment/Plan Lines/Catheters IV Catheter Type (from Nrsg): Peripheral IV Mathis in Place (from Nrsg): No Subjective 24 Hr Interval Summary Patient is stable. Still right lower quadrant pain. CT scan repeated with oral and IV contrast revealed the tubo-ovarian abscess from the right side. Looks l rola that the patient does not have diverticulitis. Patient needs to be seen by TANK CAR [employer]ADER Exam/Review of Systems Vital Signs Vitals Vital Signs Date Temp Pulse Resp B/P (MAP) Pulse Ox O2 O2 Flow FiO2 Time Delivery Rate 08/21/18 98.3 63 18 132/62 97 07:47 (85) 08/18/18 Room Air 14:00 Intake and Output 08/20/18 08/20/18 08/21/18 1515:00 23:00 07:00 IntakeIntake Total 450 ml 1063 ml 1250 ml BalanceBalance 450 ml 1063 ml 1250 ml Results Result Diagram: 08/20/18 0621 08/21/18 0555 PRABHA GRIFFITHS MD Aug 21, 2018 13:06
--- NOTE | 2018-08-21 14:15 | PN ---
Date/Time of Note Date/Time of Note DATE: 08/21/18 TIME: 14:10 Assessment/Plan VTE Prophylaxis Risk score (from Nsg)>0 risk: 3 SCD applied (from Nsg): Yes Pharmacological prophylaxis: NA/contraindicated Pharm contraindication: low risk/ambulating Lines/Catheters IV Catheter Type (from Nrsg): Peripheral IV Urinary Cath still in place: No Assessment/Plan Assessment/Plan 63-year-old woman who was diagnosed with perforated diverticulitis with a few days ago at [facility], managed conservatively presents with worsening abdominal pain with CT showing possible abscess. # Abdominal pain: - Patient with recent history of perforated diverticulitis - Repeat CT scan shows possible tuboovarian abscess - Consulted Dr. Nick from gynecology - Continue vanco and zosyn. -Continue current medications for pain management -Replace potassium as needed Result Diagram: 08/20/18 0621 08/21/18 0555 Subjective 24 Hr Interval Summary Free Text/Dictation No acute overnight events. Continues to complain of right lower abdominal pain radiating to right lower flank. Pain controlled on norco. Tolerating clear liquids without nausea, vomiting. Exam/Review of Systems Exam Vitals Vital Signs Date Temp Pulse Resp B/P (MAP) Pulse Ox O2 O2 Flow FiO2 Time Delivery Rate 08/21/18 98.3 63 18 132/62 97 07:47 (85) 08/18/18 Room Air 14:00 Intake and Output 08/20/18 08/20/18 08/21/18 1515:00 23:00 07:00 IntakeIntake Total 450 ml 1063 ml 1250 ml BalanceBalance 450 ml 1063 ml 1250 ml Exam Gen: Elderly woman lying in bed, no acute distress presently Head: Atraumatic Eyes: Normal Conjunctiva ENT: Moist mucous membranes. Normal External Ears, Nose and Mouth. Neck: Supple Resp: Clear to auscultation bilaterally Cardio: Regular rate and rhythm, no murmurs Abd: Soft, nondistended, normoactive bowel sounds, mild LLQ tenderness with no guarding. Ext: No bilateral lower extremity edema Results Results 24hrs Laboratory Tests Test 08/21/18 05:55 Blood Urea Nitrogen 5 L Creatinine 0.59 Medications Medication Current Medications IV Flush (NS 3 ml) 3 ml PER PROTOCOL IV ; Start 08/17/18 at 03:00 Acetaminophen (Tylenol Supp) 650 mg Q6H PRN [place] .PAIN 1-3 OR TEMP; Start 08/17/18 at 03:00 Albuterol/ Ipratropium (Duoneb) 3 ml Q2H RESP THERAPY PRN HHN SHORTNESS OF BREATH; Start 08/17/18 at 03:00 Piperacillin Sod/ Tazobactam Sod 100 ml @ 200 mls/hr Q6 IVPB Last administered on 08/21/18at 11:55; Admin Dose 200 MLS/HR; Start 08/17/18 at 06:00 Vancomycin HCl (Vanco Iv Per Pharmacy) VANCOMYCIN PER PHARMACY PER PROTOCOL XX ; Start 08/17/18 at 03:00 Trimethobenzamide HCl (Tigan) 200 mg Q6H PRN IM NAUSEA AND/OR VOMITING; Start 08/17/18 at 16:00 Ondansetron HCl 8 mg/Sodium Chloride 54 ml @ 216 mls/hr Q6H PRN IV NAUSEA AND/OR VOMITING; Start 08/17/18 at 16:30 Vancomycin/Sodium Chloride 250 ml @ 125 mls/hr Q8H IVPB Last administered on 08/21/18at 09:13; Admin Dose 125 MLS/HR; Start 08/18/18 at 17:00 Morphine Sulfate (morphine) 4 mg Q4H PRN IV .SEVERE PAIN 5-10 Last administered on 08/19/18at 02:58; Admin Dose 4 MG; Start 08/18/18 at 23:00 Acetaminophen/ Hydrocodone Bitart ([place] (10/325)) 1 tab Q6H PRN PO MODERATE PAIN LEVEL 4-6 Last administered on 08/21/18 05:24; Admin Dose 1 TAB; Start 08/19/18 at 12:00 Ketorolac Tromethamine (Toradol) 15 mg Q6H PRN IV PAIN Last administered on 08/21/18 10:33; Admin Dose 15 MG; Start 08/20/18 at 21:30; Stop 08/22/18 at 21:29 KESHIA CHO MD Aug 21, 2018 14:15
--- NOTE | 2018-08-21 17:23 | QN ---
Documentation Comment [employer]IN[employer] CONSULT 63 yo with generalized abdominal pain ,patient also complains of spotting She is not sexually active and she hasn't been for 20 years She was Dxed in [facility] with Perforated Diverticulitis Patient has a collection in the cul de sac and around the uterus and Adnexa PMH Denies PSH she mentions abdominal surgery fro Endometritis or Endometriosis long time ago Allergy NkDA PE: GeN NAD Abd soft diffuse Tenderness Genitalia brownish discharge WBC 12 A/p PID secondary to an Intraabdominal infection (Most likely a GI source) Patient needs an endometrial biopsy vs D&C&Hysteroscopy and Diagnostic laparoscopy , She is not NPO at this time ,Please keep the patient NPO over night ,the supervisor finishing laborist tomorrow will decide about the procedure Patient understands that the next doctor may suggest different plan of care VALERIE COLINDRES M.D. Aug 21, 2018 17:23
[2018-08-21 20:01] VITALS: BP 159/73; PULSE 60; RESP 18
[2018-08-21] MEDS: morphine 4 MG/ML VIAL IV PRN (20:28)
[2018-08-22] MEDS: VANCOMYCIN 750 MG (PMX) 250 ML IVPB SCH ×3 (00:57→17:21)
[2018-08-22 02:56] VITALS: BP 128/60; PULSE 64; RESP 16
[2018-08-22] MEDS: PIPER-TAZO 3.375 GM IV (PMX) 100 ML IVPB SCH ×4 (03:41→20:10)
[2018-08-22 07:30] VITALS: BP 129/60; PULSE 64; RESP 22
[2018-08-22] MEDS: KETOROLAC 15 MG INJ IV PRN ×2 (10:35→18:05)
[2018-08-22 14:00] VITALS: BP 142/66; PULSE 70; RESP 24
[2018-08-22] MEDS: HYDROCODONE/APAP (10/325) TAB PO PRN ×2 (14:53→22:50)
--- NOTE | 2018-08-22 15:22 | PN ---
Date/Time of Note Date/Time of Note DATE: 08/22/18 TIME: 15:20 Assessment/Plan VTE Prophylaxis Risk score (from Nsg)>0 risk: 3 SCD applied (from Nsg): Yes Pharmacological prophylaxis: NA/contraindicated Pharm contraindication: low risk/ambulating Lines/Catheters IV Catheter Type (from Nrsg): Peripheral IV Urinary Cath still in place: No Assessment/Plan Assessment/Plan 63-year-old woman who was diagnosed with perforated diverticulitis with a few days ago at [facility], managed conservatively presents with worsening abdominal pain with CT showing possible abscess. # Abdominal pain: - Patient with recent history of perforated diverticulitis - Repeat CT scan shows possible tuboovarian abscess, which is confirmed on pelvic US - Consulted gynecology - Continue vanco and zosyn. -Continue current medications for pain management -Replace potassium as needed Result Diagram: 08/22/18 1416 08/22/18 1416 Subjective 24 Hr Interval Summary Free Text/Dictation No acute overnight events. Tolerating diet. Exam/Review of Systems Exam Vitals Vital Signs Date Temp Pulse Resp B/P (MAP) Pulse Ox O2 O2 Flow FiO2 Time Delivery Rate 08/22/18 97.6 64 22 129/60 96 07:30 (83) 08/18/18 Room Air 14:00 Intake and Output 08/21/18 08/21/18 08/22/18 1515:00 23:00 07:00 IntakeIntake Total 350 ml 1550 ml 590 ml OutputOutput Total 1000 ml BalanceBalance 350 ml 550 ml 590 ml Exam Gen: Elderly woman lying in bed, no acute distress presently Head: Atraumatic Eyes: Normal Conjunctiva ENT: Moist mucous membranes. Normal External Ears, Nose and Mouth. Neck: Supple Resp: Clear to auscultation bilaterally Cardio: Regular rate and rhythm, no murmurs Abd: Soft, nondistended, normoactive bowel sounds, RLQ tenderness with no guarding. Ext: No bilateral lower extremity edema Results Results 24hrs Laboratory Tests Test 08/22/18 14:16 White Blood Count 12.8 H Red Blood Count 4.29 Hemoglobin 13.1 Hematocrit 37.3 Mean Corpuscular Volume 86.9 Mean Corpuscular Hemoglobin 30.5 Mean Corpuscular Hemoglobin Concent 35.1 Red Cell Distribution Width 12.9 Platelet Count 372 # Mean Platelet Volume 10.1 Immature Granulocytes % 0.900 H Neutrophils % 80.2 H Lymphocytes % 11.1 L Monocytes % 6.3 Eosinophils % 1.1 Basophils % 0.4 Nucleated Red Blood Cells % 0.0 Immature Granulocytes # 0.120 H Neutrophils # 10.3 H Lymphocytes # 1.4 Monocytes # 0.8 Eosinophils # 0.1 Basophils # 0.1 Nucleated Red Blood Cells # 0.0 Sodium Level 141 Potassium Level 3.5 Chloride Level 108 Carbon Dioxide Level 25 Anion Gap 8 Blood Urea Nitrogen 6 L Creatinine 0.73 Est Glomerular Filtrat Rate mL/min > 60 Glucose Level 74 Calcium Level 9.9 Phosphorus Level 3.2 Magnesium Level 1.8 Medications Medication Current Medications IV Flush (NS 3 ml) 3 ml PER PROTOCOL IV ; Start 08/17/18 at 03:00 Acetaminophen (Tylenol Supp) 650 mg Q6H PRN [place] .PAIN 1-3 OR TEMP; Start 08/17/18 at 03:00 Albuterol/ Ipratropium (Duoneb) 3 ml Q2H RESP THERAPY PRN HHN SHORTNESS OF BREATH; Start 08/17/18 at 03:00 Vancomycin HCl (Vanco Iv Per Pharmacy) VANCOMYCIN PER PHARMACY PER PROTOCOL XX ; Start 08/17/18 at 03:00 Trimethobenzamide HCl (Tigan) 200 mg Q6H PRN IM NAUSEA AND/OR VOMITING; Start 08/17/18 at 16:00 Ondansetron HCl 8 mg/Sodium Chloride 54 ml @ 216 mls/hr Q6H PRN IV NAUSEA AND/OR VOMITING; Start 08/17/18 at 16:30 Vancomycin/Sodium Chloride 250 ml @ 125 mls/hr Q8H IVPB Last administered on 08/22/18at 10:01; Admin Dose 125 MLS/HR; Start 08/18/18 at 17:00 Morphine Sulfate (morphine) 4 mg Q4H PRN IV .SEVERE PAIN 5-10 Last administered on 08/21/18at 20:28; Admin Dose 4 MG; Start 08/18/18 at 23:00 Acetaminophen/ Hydrocodone Bitart ([place] (10325)) 1 tab Q6H PRN PO MODERATE PAIN LEVEL 4-6 Last administered on 08/22/18at 14:53; Admin Dose 1 TAB; Start 08/19/18 at 12:00 Ketorolac Tromethamine (Toradol) 15 mg Q6H PRN IV PAIN Last administered on 08/22/18at 10:35; Admin Dose 15 MG; Start 08/20/18 at 21:30; Stop 08/22/18 at 21:29 Piperacillin Sod/ Tazobactam Sod 100 ml @ 200 mls/hr Q6H IVPB Last administered on 08/22/18at 15:01; Admin Dose 200 MLS/HR; Start 08/21/18 at 20:00 Miscellaneous Information (*Rx Drug Level Order Reminder*) VICTORIANO SHERIFF AT 0000 0000 ONCE XX ; Start 08/23/18 at 00:00; Stop 08/23/18 at 00:01 KESHIA CHO MD Aug 22, 2018 15:22
[2018-08-22 19:34] VITALS: BP 149/70; PULSE 60; RESP 17
--- NOTE | 2018-08-23 00:33 | CONS ---
Assessment/Plan Assessment/Plan Assessment/Plan (Daily) 63 years old 1 para 1-0-0-1 with history of perforated diverticulitis who managed conservatively with antibiotic. CT scan revealed air-fluid collection in adnexa possible tubo-ovarian abscess. Is unlikely to be tubo- ovarian abscess as patient is not sexually active in the last 20 years. I have reviewed the ultrasound and CT scan with radiologist over the phone who states it it is hard to differentiate between abscess with gynecology origin or due to history of perforated diverticulitis. She is currently on antibiotic. I do recommend continue antibiotic. HIV, RPR, chlamydia and gonorrhea ordered. As noted above it is unlikely to be tubo-ovarian abscess. I did review labs, ul trasound, CT scan with patient in detail. She expressed understanding. I strongly recommend follow-up with the surgeon and director of marketing operations as an outpatient when she discharged home. I discussed the patient with Dr. Cho. Please reconsult if needed. Consultation Date/Type/Reason Admit Date/Time Aug 17, 2018 at 00:33 Date of Consultation: Aug 22, 2018 Type of Consult Gynecology Reason for Consultation Possible tubo-ovarian abscess Requesting Provider: KESHIA CHO MD Date/Time of Note DATE: 08/23/18 TIME: 00:17 Hx of Present Illness 63 years old 1 para 1-0-0-1 who was diagnosed with perforated diverticulitis a few days ago at [facility]. She was managed conservatively and then discharged home on oral antibiotic. She presented with complaining of worsening of abdominal pain at the emergency department of [facility]. CT scan of abdomen and pelvis done which revealed possible tubo-ovarian abscess. She states is now sexually active in the last 20 years. She is currently on Vanco and Zosyn. She currently denies fever, chills, shortness of breath, chest pain, abdominal pain. She states feeling much better. She also states had Mathis catheter, after removal of Mathis catheter she had some vaginal spotting. Additional Comments Review of all above symptom was negative except the symptom which was noted on history of present illness Past Medical History Medical History: other (Diverticulitis, endometriosis) Medications Current Medications IV Flush (NS 3 ml) 3 ml PER PROTOCOL IV ; Start 08/17/18 at 03:00 Acetaminophen (Tylenol Supp) 650 mg Q6H PRN [place] .PAIN 1-3 OR TEMP; Start 08/17/18 at 03:00 Albuterol/ Ipratropium (Duoneb) 3 ml Q2H RESP THERAPY PRN HHN SHORTNESS OF BREATH; Start 08/17/18 at 03:00 Vancomycin HCl (Vanco Iv Per Pharmacy) VANCOMYCIN PER PHARMACY PER PROTOCOL XX ; Start 08/17/18 at 03:00 Trimethobenzamide HCl (Tigan) 200 mg Q6H PRN IM NAUSEA AND/OR VOMITING; Start 08/17/18 at 16:00 Ondansetron HCl 8 mg/Sodium Chloride 54 ml @ 216 mls/hr Q6H PRN IV NAUSEA AND/OR VOMITING; Start 08/17/18 at 16:30 Vancomycin/Sodium Chloride 250 ml @ 125 mls/hr Q8H IVPB Last administered on 08/22/18at 17:21; Admin Dose 125 MLS/HR; Start 08/18/18 at 17:00 Morphine Sulfate (morphine) 4 mg Q4H PRN IV .SEVERE PAIN 5-10 Last administered on 08/21/18at 20:28; Admin Dose 4 MG; Start 08/18/18 at 23:00 Acetaminophen/ Hydrocodone Bitart ([place] (/325)) 1 tab Q6H PRN PO MODERATE PAIN LEVEL 4-6 Last administered on 08/22/18at 22:50; Admin Dose 1 TAB; Start 08/19/18 at 12:00 Piperacillin Sod/ Tazobactam Sod 100 ml @ 200 mls/hr Q6H IVPB Last administered on 08/22/18at 20:10; Admin Dose 200 MLS/HR; Start 08/21/18 at 20:00 Allergies: Coded Allergies: No Known Allergy (Unverified , 08/16/18) Past Surgical History Past Surgical Hx: other (Operative laparoscopy, back surgery) Family History Significant Family History: no pertinent family hx Social History Alcohol Use: none Smoking Status: Current every day smoker Drug Use: none Exam/Review of Systems Exam Vitals Vital Signs Date Temp Pulse Resp B/P (MAP) Pulse Ox O2 O2 Flow FiO2 Time Delivery Rate 08/22/18 98.3 60 17 149/70 98 Room Air 19:34 (96) Intake and Output 08/22/18 08/22/18 08/23/18 1515:00 23:00 07:00 IntakeIntake Total 350 ml 450 ml BalanceBalance 350 ml 450 ml Constitutional: alert, oriented Psych: nl mood/affect Head: normocephalic ENMT: nl external ears & nose Neck: supple, non-tender Respiratory: clear to auscultation Cardiovascular: regular rate and rhythm Gastrointestinal: soft, nl liver, spleen, non-tender Genitourinary - Female: other (Declined. Patient states he had a gynecologic exam few days ago by another director of marketing operations) Neurological: nl mental status, nl speech Results Result Diagram: 08/22/18 1416 08/22/18 1416 Results 24hrs Laboratory Tests Test 08/22/18 14:16 White Blood Count 12.8 H Red Blood Count 4.29 Hemoglobin 13.1 Hematocrit 37.3 Mean Corpuscular Volume 86.9 Mean Corpuscular Hemoglobin 30.5 Mean Corpuscular Hemoglobin Concent 35.1 Red Cell Distribution Width 12.9 Platelet Count 372 # Mean Platelet Volume 10.1 Immature Granulocytes % 0.900 H Neutrophils % 80.2 H Lymphocytes % 11.1 L Monocytes % 6.3 Eosinophils % 1.1 Basophils % 0.4 Nucleated Red Blood Cells % 0.0 Immature Granulocytes # 0.120 H Neutrophils # 10.3 H Lymphocytes # 1.4 Monocytes # 0.8 Eosinophils # 0.1 Basophils # 0.1 Nucleated Red Blood Cells # 0.0 Sodium Level 141 Potassium Level 3.5 Chloride Level 108 Carbon Dioxide Level 25 Anion Gap 8 Blood Urea Nitrogen 6 L Creatinine 0.73 Est Glomerular Filtrat Rate mL/min > 60 Glucose Level 74 Calcium Level 9.9 Phosphorus Level 3.2 Magnesium Level 1.8 Medications Medication Current Medications IV Flush (NS 3 ml) 3 ml PER PROTOCOL IV ; Start 08/17/18 at 03:00 Acetaminophen (Tylenol Supp) 650 mg Q6H PRN [place] .PAIN 1-3 OR TEMP; Start 08/17/18 at 03:00 Albuterol/ Ipratropium (Duoneb) 3 ml Q2H RESP THERAPY PRN HHN SHORTNESS OF BREATH; Start 08/17/18 at 03:00 Vancomycin HCl (Vanco Iv Per Pharmacy) VANCOMYCIN PER PHARMACY PER PROTOCOL XX ; Start 08/17/18 at 03:00 Trimethobenzamide HCl (Tigan) 200 mg Q6H PRN IM NAUSEA AND/OR VOMITING; Start 08/17/18 at 16:00 Ondansetron HCl 8 mg/Sodium Chloride 54 ml @ 216 mls/hr Q6H PRN IV NAUSEA AND/OR VOMITING; Start 08/17/18 at 16:30 Vancomycin/Sodium Chloride 250 ml @ 125 mls/hr Q8H IVPB Last administered on 08/22/18 17:21; Admin Dose 125 MLS/HR; Start 08/18/18 at 17:00 Morphine Sulfate (morphine) 4 mg Q4H PRN IV .SEVERE PAIN 5-10 Last administered on 08/21/18at 20:28; Admin Dose 4 MG; Start 08/18/18 at 23:00 Acetaminophen/ Hydrocodone Bitart ([place] (/)) 1 tab Q6H PRN PO MODERATE PAIN LEVEL 4-6 Last administered on 08/22/18at 22:50; Admin Dose 1 TAB; Start 08/19/18 at 12:00 Piperacillin Sod/ Tazobactam Sod 100 ml @ 200 mls/hr Q6H IVPB Last administered on 08/22/18at 20:10; Admin Dose 200 MLS/HR; Start 08/21/18 at 20:00 KEANU KIRKPATRICK Aug 23, 2018 00:33
[2018-08-23] MEDS: morphine 4 MG/ML VIAL IV PRN (01:39)
[2018-08-23] MEDS: PIPER-TAZO 3.375 GM IV (PMX) 100 ML IVPB SCH ×4 (01:40→20:24)
[2018-08-23 01:57] VITALS: BP 142/67; PULSE 63; RESP 17
[2018-08-23] MEDS: KETOROLAC 15 MG INJ IV PRN ×2 (04:09→13:28)
[2018-08-23] MEDS: VANCOMYCIN 1 GM 250 ML IVPB SCH ×2 (04:13→16:40)
[2018-08-23 08:00] VITALS: BP 114/79; PULSE 62; RESP 20
[2018-08-23] MEDS: HYDROCODONE/APAP (10/325) TAB PO PRN ×2 (08:45→18:28)
[2018-08-23] MEDS ORDERED: POTASSIUM CHLORIDE (SR) 20 MEQ TAB PO ONE (13:00)
[2018-08-23 14:00] VITALS: BP 132/60; PULSE 62; RESP 20
--- NOTE | 2018-08-23 14:09 | PN ---
Date/Time of Note Date/Time of Note DATE: 08/23/18 TIME: 14:03 Assessment/Plan VTE Prophylaxis Risk score (from Nsg)>0 risk: 4 SCD applied (from Nsg): Yes Pharmacological prophylaxis: NA/contraindicated Pharm contraindication: low risk/ambulating Lines/Catheters IV Catheter Type (from Nrsg): Saline Lock Urinary Cath still in place: No Assessment/Plan Assessment/Plan 63-year-old woman who was diagnosed with perforated diverticulitis with a few days ago at [facility], managed conservatively presents with worsening abdominal pain with CT showing possible abscess. # Abdominal pain: - Patient with recent history of perforated diverticulitis - The patient reports that pain started in LLQ, this resolved, and now since about 08/19 she has a new RLQ pain radiating to the R flank which has not resolved over the past few days. - Possible that the original perforated LLQ diverticulitis seeded the R adnexae and caused the R tuboovarian abscess seen on CT and US. - Gynecology: No intervention needed. - Will consult infectious disease. - Continue vanco and zosyn. - Replace potassium as needed - Pain control with norco and NSAIDs (patient says toradol is much more effective than morphine). Dispo: Tentative plan for discharge tomorrow on oral antibiotics depending on ID recs. Result Diagram: 08/23/18 1101 08/23/18 1101 Subjective 24 Hr Interval Summary Free Text/Dictation No acute overnight events. Pain adequately controlled on current regimen; required morphine last night. Tolerating regular diet. Exam/Review of Systems Exam Vitals Vital Signs Date Temp Pulse Resp B/P (MAP) Pulse Ox O2 O2 Flow FiO2 Time Delivery Rate 08/23/18 97.8 62 20 114/79 96 08:00 (91) 08/23/18 Room Air 01:57 Intake and Output 08/22/18 08/22/18 08/23/18 1515:00 23:00 07:00 IntakeIntake Total 350 ml 450 ml 350 ml BalanceBalance 350 ml 450 ml 350 ml Exam Gen: Elderly woman lying in bed, no acute distress presently Head: Atraumatic Eyes: Normal Conjunctiva ENT: Moist mucous membranes. Normal External Ears, Nose and Mouth. Neck: Supple Resp: Clear to auscultation bilaterally Cardio: Regular rate and rhythm, no murmurs Abd: Soft, nondistended, normoactive bowel sounds, RLQ tenderness with no guarding. Ext: No bilateral lower extremity edema Results Results 24hrs Laboratory Tests Test 08/22/18 14:16 08/23/18 00:16 08/23/18 08:06 08/23/18 11:01 White Blood Count 12.8 H 12.3 H Red Blood Count 4.29 3.80 L Hemoglobin 13.1 11.8 L Hematocrit 37.3 33.4 L Mean Corpuscular 86.9 87.9 Volume Mean Corpuscular 30.5 31.1 Hemoglobin Mean Corpuscular 35.1 35.3 Hemoglobin Concent Red Cell 12.9 12.9 Distribution Width Platelet Count 372 # 368 Mean Platelet Volume 10.1 10.2 Immature 0.900 H 0.800 H Granulocytes % Neutrophils % 80.2 H 80.9 H Lymphocytes % 11.1 L 9.3 L Monocytes % 6.3 7.9 Eosinophils % 1.1 0.8 Basophils % 0.4 0.3 Nucleated Red Blood 0.0 0.0 Cells % Immature 0.120 H 0.100 H Granulocytes # Neutrophils # 10.3 H 9.9 H Lymphocytes # 1.4 1.1 Monocytes # 0.8 1.0 H Eosinophils # 0.1 0.1 Basophils # 0.1 0.0 Nucleated Red Blood 0.0 0.0 Cells # Sodium Level 141 142 Potassium Level 3.5 2.7 *L Chloride Level 108 107 Carbon Dioxide Level 25 27 Anion Gap 8 8 Blood Urea Nitrogen 6 L 8 Creatinine 0.73 0.90 Est Glomerular > 60 > 60 Filtrat Rate mL/min Glucose Level 74 109 Calcium Level 9.9 9.5 Phosphorus Level 3.2 3.3 Magnesium Level 1.8 1.7 Vancomycin Level 18.5 Trough HIV (1&2) Antibody NEGATIVE Medications Medication Current Medications IV Flush (NS 3 ml) 3 ml PER PROTOCOL IV ; Start 08/17/18 at 03:00 Acetaminophen (Tylenol Supp) 650 mg Q6H PRN [place] .PAIN 1-3 OR TEMP; Start 08/17/18 at 03:00 Albuterol/ Ipratropium (Duoneb) 3 ml Q2H RESP THERAPY PRN HHN SHORTNESS OF BREATH; Start 08/17/18 at 03:00 Vancomycin HCl (Vanco Iv Per Pharmacy) VANCOMYCIN PER PHARMACY PER PROTOCOL XX ; Start 08/17/18 at 03:00 Ondansetron HCl 8 mg/Sodium Chloride 54 ml @ 216 mls/hr Q6H PRN IV NAUSEA AND/OR VOMITING; Start 08/17/18 at 16:30 Acetaminophen/ Hydrocodone Bitart ([place] (10)) 1 tab Q6H PRN PO MODERATE PAIN LEVEL 4-6 Last administered on 08/23/18at 08:45; Admin Dose 1 TAB; Start 08/19/18 at 12:00 Piperacillin Sod/ Tazobactam Sod 100 ml @ 200 mls/hr Q6H IVPB Last administered on 08/23/18at 13:22; Admin Dose 200 MLS/HR; Start 08/21/18 at 20:00 Vancomycin HCl 250 ml @ 125 mls/hr Q12H IVPB Last administered on 08/23/18at 04:13; Admin Dose 125 MLS/HR; Start 08/23/18 at 05:00 Miscellaneous Information (*Rx Drug Level Order Reminder*) VANCOMYCIN TROUGH LEVEL 1600 ONCE XX ; Start 08/24/18 at 16:00; Stop 08/24/18 at 16:01 Potassium Chloride 100 ml @ 50 mls/hr Q2H IVPB ; Start 08/23/18 at 14:30; Stop 08/23/18 at 18:29 Naproxen (Naprosyn) 500 mg Q8H PRN PO lower abdominal pain; Start 08/23/18 at 14:00; Status UNKESHIA MARCH MD Aug 23, 2018 14:09
[2018-08-23] MEDS: POTASSIUM CHLORIDE 100 ML IVPB SCH ×2 (14:45→21:45)
[2018-08-23 19:33] VITALS: BP 126/66; PULSE 65; RESP 20
[2018-08-23] MEDS: NAPROXEN 500 MG TAB PO PRN (21:43)
--- NOTE | 2018-08-23 23:41 | CONS ---
Assessment/Plan Assessment/Plan Hospital Course (Demo Recall) assessment/impression - complicated intra-abdominal infection due to diverticulitis with perforation - diverticulitis with perforation. CT abd/pel on 08/16/2018 showed diffuse mesenteric inflammatory fat stranding throughout the abdomen and pelvis, most prominent deep in the pelvis. A fluid collection was seen posterior to the uterus, measuring up to 3.7 cm. On 08/20/[address] showed complex air and fluid-filled collection within R adnexa and extending posterior to the uterus, approximately 10.4 x 3.4 x 6.5 cm. Findings were mildly increased when compared to the prior examination. According to Dr. Rodriguez, the Pt's intra-abdominal fluid collection is not amenable for drainage (my conversation with him on 08/23/2018) - question of TOA/PID based on CT but Pt has not been sexually active >20 years - post-menopausal vaginal bleed (spotting) - active smoker, smokes 1ppd since age 18 - depression, takes lexapro - h/o back surgeries - h/o endometriosis recommendations - pending results: chlamydia - ordered: blood cultures x2 and lactic acid - I recommend IV pip/tazo and IV fluconazole. d/c IV vancomycin - I am concerned that Pt's abd pain remains the same at 10 out of 10 and that she c/o persistent abd bloating (distension) despite nearly one week of IV antibiotics. I recommend f/u by the surgery service - if still no surgery is planned, I want to confirm that Pt's pain and bloating are responding to pip/tazo and fluconazole - when she is ready to go home, I recommend pip/tazo and fluconazole x 2 weeks. Please have the family independence case manager set up a CT abd/pel before the end of her antibiotic - I do not recommend oral antibiotics upon discharge because she failed PO antibiotics after she was discharged from [facility] - I recommend reconsulting lithographic artist re. post-menopausal vaginal bleed management d/w Pt and her RN Ami Consultation Date/Type/Reason Admit Date/Time Aug 17, 2018 at 00:33 Date of Consultation: Aug 23, 2018 Type of Consult ID Reason for Consultation complicated intra-abdominal infection Requesting Provider: KESHIA CHO MD Date/Time of Note DATE: 08/23/18 TIME: 23:41 Hx of Present Illness This is a 63 yo female without significant medical history who developed severe lower abdominal pain approximately 10 days ago. She initially presented at ER of [facility]. diverticulitis with perforation was suspected. Pt was sent home with PO cipro and metronidazole. approximately 4 min after she took these oral antibiotics at home, she vomited. She continued to have severe abd pain, now located in RLQ with radiation to the back. She continued to have subjective fever and diaphoresis. Next Pt presented at ER of [facility] on 08/16/2018. CT abd/pel on 08/16/2018 showed diffuse mesenteric inflammatory fat stranding throughout the abdomen and pelvis, most prominent deep in the pelvis. A fluid collection was seen posterior to the uterus, measuring up to 3.7 cm. Pt was started on IV vancomycin and pip/tazo. Pt was seen by the surgery service; no surgery was planned and it was decided to manage this with antibiotic. Percutaneous drainage of this abscess was not considered possible. On 08/20/[address] was done; it showed complex air and fluid-filled collect ion within R adnexa and extending posterior to the uterus, approximately 10.4 x 3.4 x 6.5 cm. Findings were mildly increased when compared to the prior examination, and concerning for tubo-ovarian abscess/PID. As a result of this Pt was seen by the lithographic artist service; her history did not seem to support TOA/PID: Pt has not been sexually active for >20 years. During the last 48 hrs she has had vaginal bleed (spotting) but denies cervical discharge/pain. Today she reports that the abd pain remains the same, 10 out of 10. She has taken some PO diet without emesis. Her WBC level was 12.3. Yesterday it was 12.8. Dr. Cho requested ID consultation on this Pt. Constitutional: diaphoresis; No febrile Eyes: no complaints ENT: no complaints Respiratory: no complaints Cardiovascular: no complaints Gastrointestinal: pain, nausea, passing stool (small frequent stool), vomiting, other (bloating); No diarrhea Genitourinary: bleeding (vaginal bleed (spotting)); No dysuria, No discharge Skin: no complaints Neurologic: no complaints Endocrine: no complaints Past Medical History Medical History: no pertinent history, other (Diverticulitis, endometriosis) Medications Current Medications IV Flush (NS 3 ml) 3 ml PER PROTOCOL IV ; Start 08/17/18 at 03:00 Acetaminophen (Tylenol Supp) 650 mg Q6H PRN [place] .PAIN 1-3 OR TEMP; Start 08/17/18 at 03:00 Albuterol/ Ipratropium (Duoneb) 3 ml Q2H RESP THERAPY PRN HHN SHORTNESS OF BREATH; Start 08/17/18 at 03:00 Vancomycin HCl (Vanco Iv Per Pharmacy) VANCOMYCIN PER PHARMACY PER PROTOCOL XX ; Start 08/17/18 at 03:00 Ondansetron HCl 8 mg/Sodium Chloride 54 ml @ 216 mls/hr Q6H PRN IV NAUSEA AND/OR VOMITING; Start 08/17/18 at 16:30 Acetaminophen/ Hydrocodone Bitart ([place] ()) 1 tab Q6H PRN PO MODERATE PAIN LEVEL 4-6 Last administered on 08/23/18at 18:28; Admin Dose 1 TAB; Start 08/19/18 at 12:00 Piperacillin Sod/ Tazobactam Sod 100 ml @ 200 mls/hr Q6H IVPB Last administered on 08/23/18at 20:24; Admin Dose 200 MLS/HR; Start 08/21/18 at 20:00 Vancomycin HCl 250 ml @ 125 mls/hr Q12H IVPB Last administered on 08/23/18at 16:40; Admin Dose 125 MLS/HR; Start 08/23/18 at 05:00 Miscellaneous Information (*Rx Drug Level Order Reminder*) VANCOMYCIN TROUGH L [place] 1600 ONCE XX ; Start 08/24/18 at 16:00; Stop 08/24/18 at 16:01 Naproxen (Naprosyn) 500 mg Q8H PRN PO lower abdominal pain Last administered on 08/23/18at 21:43; Admin Dose 500 MG; Start 08/23/18 at 14:00 Allergies: Coded Allergies: No Known Allergy (Unverified , 08/16/18) Past Surgical History Past Surgical Hx: other (Operative laparoscopy, back surgery) Social History Alcohol Use: none Smoking Status: Current every day smoker Drug Use: none Exam/Review of Systems Exam Vitals Vital Signs Date Temp Pulse Resp B/P (MAP) Pulse Ox O2 O2 Flow FiO2 Time Delivery Rate 08/23/18 98.7 65 20 126/66 98 Room Air 19:33 (86) Intake and Output 08/22/18 08/22/18 08/23/18 1515:00 23:00 07:00 IntakeIntake Total 350 ml 450 ml 350 ml BalanceBalance 350 ml 450 ml 350 ml Constitutional: alert, oriented, well developed Psych: no complaints, nl mood/affect Head: normocephalic, atraumatic Eyes: nl conjunctiva, nl lids ENMT: nl external ears & nose, nl lips & teeth, nl nasal mucosa & septum, mucosa pink and moist Neck: supple, non-tender Respiratory: clear to auscultation, normal air movement Cardiovascular: regular rate and rhythm, nl pulses; No edema Gastrointestinal: soft, bowel sounds, distended, tender (RLQ) Musculoskeletal: nl extremities to inspection; No swelling Extremities: No edema Neurological: HOME VISITOR II-XII intact, nl mental status, nl speech Skin: nl turgor; No rash or lesions Results Result Diagram: 08/23/18 1101 08/23/18 1101 Results 24hrs Laboratory Tests Test 08/23/18 00:16 08/23/18 08:06 08/23/18 11:01 Vancomycin Level Trough 18.5 Rapid Plasma Reagin NONREACTIVE HIV (1&2) Antibody NEGATIVE White Blood Count 12.3 H Red Blood Count 3.80 L Hemoglobin 11.8 L Hematocrit 33.4 L Mean Corpuscular Volume 87.9 Mean Corpuscular Hemoglobin 31.1 Mean Corpuscular Hemoglobin Concent 35.3 Red Cell Distribution Width 12.9 Platelet Count 368 Mean Platelet Volume 10.2 Immature Granulocytes % 0.800 H Neutrophils % 80.9 H Lymphocytes % 9.3 L Monocytes % 7.9 Eosinophils % 0.8 Basophils % 0.3 Nucleated Red Blood Cells % 0.0 Immature Granulocytes # 0.100 H Neutrophils # 9.9 H Lymphocytes # 1.1 Monocytes # 1.0 H Eosinophils # 0.1 Basophils # 0.0 Nucleated Red Blood Cells # 0.0 Sodium Level 142 Potassium Level 2.7 *L Chloride Level 107 Carbon Dioxide Level 27 Anion Gap 8 Blood Urea Nitrogen 8 Creatinine 0.90 Est Glomerular Filtrat Rate mL/min > 60 Glucose Level 109 Calcium Level 9.5 Phosphorus Level 3.3 Magnesium Level 1.7 Medications Medication Current Medications IV Flush (NS 3 ml) 3 ml PER PROTOCOL IV ; Start 08/17/18 at 03:00 Acetaminophen (Tylenol Supp) 650 mg Q6H PRN [place] .PAIN 1-3 OR TEMP; Start 08/17/18 at 03:00 Albuterol/ Ipratropium (Duoneb) 3 ml Q2H RESP THERAPY PRN HHN SHORTNESS OF BREATH; Start 08/17/18 at 03:00 Vancomycin HCl (Vanco Iv Per Pharmacy) VANCOMYCIN PER PHARMACY PER PROTOCOL XX ; Start 08/17/18 at 03:00 Ondansetron HCl 8 mg/Sodium Chloride 54 ml @ 216 mls/hr Q6H PRN IV NAUSEA A ND/OR VOMITING; Start 08/17/18 at 16:30 Acetaminophen/ Hydrocodone Bitart ([place] ()) 1 tab Q6H PRN PO MODERATE PAIN LEVEL 4-6 Last administered on 08/23/18at 18:28; Admin Dose 1 TAB; Start 08/19/18 at 12:00 Piperacillin Sod/ Tazobactam Sod 100 ml @ 200 mls/hr Q6H IVPB Last administered on 08/23/18at 20:24; Admin Dose 200 MLS/HR; Start 08/21/18 at 20:00 Vancomycin HCl 250 ml @ 125 mls/hr Q12H IVPB Last administered on 08/23/18at 16:40; Admin Dose 125 MLS/HR; Start 08/23/18 at 05:00 Miscellaneous Information (*Rx Drug Level Order Reminder*) VANCOMYCIN TROUGH LEVEL 1600 ONCE XX ; Start 08/24/18 at 16:00; Stop 08/24/18 at 16:01 Naproxen (Naprosyn) 500 mg Q8H PRN PO lower abdominal pain Last administered on 08/23/18at 21:43; Admin Dose 500 MG; Start 08/23/18 at 14:00 MAK MCKNIGHT M.D. Aug 23, 2018 23:41
[2018-08-24] MEDS: HYDROCODONE/APAP (10/325) TAB PO PRN ×2 (00:47→07:19)
[2018-08-24 02:00] VITALS: BP 137/59; PULSE 60; RESP 20
[2018-08-24] MEDS ORDERED: FLUCONAZOLE 200 MG (PMX) 100 ML IVPB SCH ×2 (02:00→18:00)
[2018-08-24] MEDS: PIPER-TAZO 3.375 GM IV (PMX) 100 ML IVPB SCH ×3 (03:15→13:35)
[2018-08-24 07:15] VITALS: BP 139/72; PULSE 61; RESP 16
[2018-08-24] MEDS ORDERED: LIDOCAINE 1% (MPF) 5 ML VIAL SC ONE (09:00)
--- NOTE | 2018-08-24 12:20 | CONS ---
[facility] HCIS Consult Follow-up Patient Name: Kimberly Castillo Unit Number: [id number] Date of : 1955 Patient Status: Admitted Inpatient Attending Doctor: Keshia Mejia MD Edit: MAK BRANTLEY M.D. on 08/25/18 @ 02:53 Fercho: I discussed the management with COMMANDING OFFICER [employer]QU[employer] Brady and agree Assessment/Plan Assessment/Plan Hospital Course (Demo Recall) assessment/impression - complicated intra-abdominal infection due to diverticulitis with perforation - diverticulitis with perforation. CT abd/pel on 08/16/2018 showed diffuse mesenteric inflammatory fat stranding throughout the abdomen and pelvis, most prominent deep in the pelvis. A fluid collection was seen posterior to the uterus, measuring up to 3.7 cm. On 08/20/[address] showed complex air and fluid-filled collection within R adnexa and extending posterior to the uterus, approximately 10.4 x 3.4 x 6.5 cm. Findings were mildly increased when compared to the prior examination. According to Dr. Rodriguez, the Pt's intra-abdominal fluid collection is not amenable for drainage (Dr. Brantley's conversation with him on 08/23/2018) - question of TOA/PID based on CT but Pt has not been sexually active >20 years - post-menopausal vaginal bleed (spotting) - active smoker, smokes 1ppd since age 18 - depression, takes Lexapro - h/o back surgeries - h/o endometriosis Recommendations - pending results: chlamydia (in process) - pending: blood cultures x2 (in process) - continue IV pip/tazo (08/17/2018-) and IV fluconazole (08/24/2018-); s/p IV vancomycin - when pt is ready to go home, we recommend pip/tazo and fluconazole x 2 weeks. Before pt gets discharged, please have the hospice case manager set up a CT abd/pel before the end of her antibiotic. - We do not recommend oral antibiotics upon discharge because she failed PO antibiotics after she was discharged from [facility] - outpatient ID f/u with Dr. Brantley upon discharge - outpatient Surgery and SYSTEMS MECHANIC f/u upon discharge Management d/w patient, WAYNE Deal, and with Dr. Brantley Consultation Date/Type/Reason Admit Date/Time Aug 17, 2018 at 00:33 Initial Consult Date 08/23/18 Type of Consult Infectious Disease Requesting Provider: KESHIA MEJIA MD Date/Time of Note DATE: 08/24/18 TIME: 12:13 24 HR Interval Summary Free Text/Dictation Pt states RLQ abdominal pain has improved with IV Toradol. IV morphine caused nausea but no vomiting. Currently rates pain 2-3/10. No n/v/d. New RUE PICC line was just placed. DC planning has been initiated. Urine sample was just collected to r/o STDs. Still has vaginal spotting. Exam/Review of Systems Exam Vitals Vital Signs Date Temp Pulse Resp B/P (MAP) Pulse Ox O2 O2 Flow FiO2 Time Delivery Rate 08/24/18 98.2 61 16 139/72 97 Room Air 07:15 (94) Intake and Output 08/23/18 08/23/18 08/24/18 1414:59 22:59 06:59 IntakeIntake Total 440 ml 1270 ml 400 ml BalanceBalance 440 ml 1270 ml 400 ml Constitutional: alert, oriented, well developed Psych: no complaints, nl mood/affect Head: normocephalic, atraumatic Eyes: nl conjunctiva, nl lids ENMT: nl external ears & nose, nl lips & teeth, nl nasal mucosa & septum, mucosa pink and moist Neck: supple, non-tender Respiratory: clear to auscultation, normal air movement Cardiovascular: regular rate and rhythm, nl pulses Gastrointestinal: soft, non-tender Musculoskeletal: nl extremities to inspection Extremities: normal pulses, other (RUE PICC c/d/i) Neurological: HOSPICE COMMUNITY LIAISON II-XII intact, nl mental status, nl speech Skin: nl turgor; No rash or lesions Results Result Diagram: 08/24/18 0534 08/24/18 0551 Results 24hrs Laboratory Tests Test 08/24/18 05:45 08/24/18 05:51 White Blood Count 10.0 Red Blood Count 3.71 L Hemoglobin 11.3 L Hematocrit 33.0 L Mean Corpuscular Volume 88.9 Mean Corpuscular Hemoglobin 30.5 Mean Corpuscular Hemoglobin Concent 34.2 Red Cell Distribution Width 13.1 Platelet Count 346 Mean Platelet Volume 10.2 Immature Granulocytes % 0.800 H Neutrophils % 75.4 Lymphocytes % 13.1 L Monocytes % 9.0 Eosinophils % 1.2 Basophils % 0.5 Nucleated Red Blood Cells % 0.0 Immature Granulocytes # 0.080 H Neutrophils # 7.5 Lymphocytes # 1.3 Monocytes # 0.9 Eosinophils # 0.1 Basophils # 0.1 Nucleated Red Blood Cells # 0.0 Sodium Level 142 Potassium Level 3.6 Chloride Level 110 Carbon Dioxide Level 26 Anion Gap 6 Blood Urea Nitrogen 8 Creatinine 0.90 Est Glomerular Filtrat Rate mL/min > 60 Glucose Level 86 Lactic Acid Level 0.9 Calcium Level 9.8 Phosphorus Level 3.2 Magnesium Level 1.8 Procalcitonin 0.15 H Medications Medication Current Medications IV Flush (NS 3 ml) 3 ml PER PROTOCOL IV ; Start 08/17/18 at 03:00 Acetaminophen (Tylenol Supp) 650 mg Q6H PRN [place] .PAIN 1-3 OR TEMP; Start 08/17/18 at 03:00 Albuterol/ Ipratropium (Duoneb) 3 ml Q2H RESP THERAPY PRN HHN SHORTNESS OF BREATH; Start 08/17/18 at 03:00 Ondansetron HCl 8 mg/Sodium Chloride 54 ml @ 216 mls/hr Q6H PRN IV NAUSEA AND/OR VOMITING; Start 08/17/18 at 16:30 Acetaminophen/ Hydrocodone Bitart ([place] (10/325)) 1 tab Q6H PRN PO MODERATE PAIN LEVEL 4-6 Last administered on 08/24/18at 07:19; Admin Dose 1 TAB; Start 08/19/18 at 12:00 Piperacillin Sod/ Tazobactam Sod 100 ml @ 200 mls/hr Q6H IVPB Last administered on 08/24/18at 08:47; Admin Dose 200 MLS/HR; Start 08/21/18 at 20:00 Naproxen (Naprosyn) 500 mg Q8H PRN PO lower abdominal pain Last administered on 08/23/18at 21:43; Admin Dose 500 MG; Start 08/23/18 at 14:00 Fluconazole 100 ml @ 100 mls/hr Q24H IVPB Last administered on 08/24/18at 02:02; Admin Dose 100 MLS/HR; Start 08/24/18 at 02:00 KAELYN MILES NP Aug 24, 2018 12:20
[2018-08-24] MEDS: NAPROXEN 500 MG TAB PO PRN (13:35)
[2018-08-24 14:26] VITALS: BP 139/73; PULSE 68; RESP 16
[2018-08-24] MEDS ORDERED: HYDR-3609 PO (14:54)
[2018-08-24] MEDS ORDERED: NAPR-985 PO (14:54)
--- NOTE | 2018-08-24 15:01 | PDOCDIS ---
Discharge Instructions DIAGNOSIS Discharge Diagnosis R tuboovarian abscess CONDITION [id number] Patient Condition: [id number] Fair HOME CARE INSTRUCTIONS: [id number] Diet Instructions: [id number] Regular ACTIVITY: [id number] Activity Restrictions: [id number] No Restrictions FOLLOW UP/APPOINTMENTS Follow-up Plan 1. A home health agency has been arranged to give you IV antimicrobials. These are pipercillin-tazobactam (Zosyn) every 6 hours and fluconazole every day. You will complete these antibiotics on September 06. 2. You should get a repeat CT scan with contrast of your abdomen and pelvis early the week of September 03, prior to finishing the antibiotics. 3. Make an appointment with Dr. Brantley (infectious disease) the week of September [address] scan[address] [id number] [facility] [address] [facility] [id number] [phone]. 4. For pain, take naproxen and tylenol as needed. For severe pain take [place] as prescribed. Don't drive or drink alcohol after taking [place]. 5. [place] may cause constipation. Take senna as prescribed, or other orhe-whr-gwwmefn treatments like magnesium oxide. Drink plenty of water. 5. For severe pain unresponsive to the above, or for fever >101F (38C), return to the emergency room at [facility]. KESHIA CHO MD Aug 24, 2018 15:01
--- NOTE | 2018-08-24 15:54 | DS ---
Date/Time of Note Date/Time of Note DATE: 08/24/18 TIME: 15:41 Discharge Summary Admission/Discharge Info Admit Date/Time Aug 17, 2018 at 00:33 Discharge Date/Time August 24, 2018 Discharge Diagnosis R tuboovarian abscess Patient Condition: Fair Consults Dr. Brantley, infectious disease Dr. Berumen, gynecology Procedures None Hx of Present Illness 63-year-old woman without significant past medical history who was diagnosed with perforated diverticulitis a few days ago at [facility], managed conservatively presents with worsening abdominal pain with CT showing Diffuse mesenteric inflammatory fat stranding throughout the abdomen and pelvis, most prominent deep in the pelvis as well as a collection of fluid posterior to the uterus, measuring up to 3.7 cm, worrisome for abscess formation. Possible smal ler adjacent fluid collection on the right is also present. Diffuse wall thickening to multiple small bowel loops, which may be reactive or secondary to enterocolitis. Hospital Course The patient was treated with empiric vanco and zosyn. Of note, soon after admission the patient's symptoms changed from LLQ pain to RLQ pain. CT abdomen was repeated showing progression of retrouterine abscess and actually was more consistent with tubo-ovarian abscess. Transvaginal US confirmed a tubo-ovarian abscess. The patient was seen by gynecology consult who did not think intervention was needed. IR confirmed it was not amenable to CT-guided drainage. The patient was restarted on diet which she tolerated well. She did remain dependent on opioid and NSAID analgesics and her symptoms did NOT significantly improve over the hospital course. The current plan is for her to get a course of IV zosyn and fluconazole via PICC (until 09/06), then repeat the CT abdomen and see Dr. Stokes in clinic. Follow-up Plan 1. A home health agency has been arranged to give you IV antimicrobials. These are pipercillin-tazobactam (Zosyn) every 6 hours and fluconazole every day. You will complete these antibiotics on September 06. 2. You should get a repeat CT scan with contrast of your abdomen and pelvis early the week of September 03-, prior to finishing the antibiotics. 3. Make an appointment with Dr. Brantley (infectious disease) the week of September [address] [place] [id number] [phone]. 4. For pain, take naproxen and tylenol as needed. For severe pain take Paron as prescribed. Don't drive or drink alcohol after taking Paron. 5. Paron may cause constipation. Take senna as prescribed, or other actj-ini-xzkzhez treatments like magnesium oxide. Drink plenty of water. 5. For severe pain unresponsive to the above, or for fever >101F (38C), return to the emergency room at [facility]. Primary Care Provider Faizan West Time spent on discharge: > 30 minutes Pending Labs Laboratory Tests Test 08/24/18 05:45 08/24/18 05:51 White Blood Count 10.0 10^3/ul (4.8-10.8) Red Blood Count 3.71 10^6/ul (4.20-5.40) Hemoglobin 11.3 g/dl (12.0-16.0) Hematocrit 33.0 % (37.0-47.0) Mean Corpuscular Volume 88.9 fl (82.0-101.0) Mean Corpuscular Hemoglobin 30.5 pg (29.0-33.0) Mean Corpuscular 34.2 g/dl (32.0-37.0) Hemoglobin Concent Red Cell Distribution Width 13.1 % (11.5-14.5) Platelet Count 346 10^3/UL (140-415) Mean Platelet Volume 10.2 fl (7.4-10.4) Immature Granulocytes % 0.800 % (0.001-0.429) Neutrophils % 75.4 % (39.0-77.0) Lymphocytes % 13.1 % (15.0-51.0) Monocytes % 9.0 % (0.0-11.0) Eosinophils % 1.2 % (0.0-7.0) Basophils % 0.5 % (0.0-2.0) Nucleated Red Blood Cells % 0.0 /100WBC (0.0-0.0) Immature Granulocytes # 0.080 10^3/ul (0.0-0.031) Neutrophils # 7.5 10^3/ul (1.6-7.5) Lymphocytes # 1.3 10^3/ul (0.8-2.9) Monocytes # 0.9 10^3/ul (0.3-0.9) Eosinophils # 0.1 10^3/ul (0.0-0.5) Basophils # 0.1 10^3/ul (0.0-0.1) Nucleated Red Blood Cells # 0.0 10^3/ul (0.0-0.0) Sodium Level 142 mmol/L (135-144) Potassium Level 3.6 mmol/L (3.5-5.1) Chloride Level 110 mmol/L (97-110) Carbon Dioxide Level 26 mmol/L (21-31) Anion Gap 6 (5-13) Blood Urea Nitrogen 8 mg/dl (7-20) Creatinine 0.90 mg/dl (0.44-1.00) Est Glomerular Filtrat > 60 mL/min (>60) Rate mL/min Glucose Level 86 mg/dl (70-220) Lactic Acid Level 0.9 mmol/L (0.5-2.0) Calcium Level 9.8 mg/dl (8.4-10.2) Phosphorus Level 3.2 mg/dl (2.5-4.9) Magnesium Level 1.8 mg/dl (1.7-2.5) Procalcitonin 0.15 ng/mL (0.00-0.10) KESHIA CHO MD Aug 24, 2018 15:52
== END 2018-08-24 16:07 | disposition home health service (06) | DRG 757 ==
LOC: E/R 21:02 → PP2 08-17 00:33
PROVIDERS: ADMIT Internal Medicine; ATTEND Internal Medicine
PROC: 02HV33Z Insertion of Infusion Device into Superior Vena Cava, Percutaneous Approach (ICD-10-PCS; principal; 2018-08-24)
DX: N70.93 Salpingitis and oophoritis, unspecified (principal); K65.1 Peritoneal abscess; K57.92 Diverticulitis of intestine, part unspecified, without perforation or abscess without bleeding; F17.200 Nicotine dependence, unspecified, uncomplicated
CPT/HCPCS: 36415; 36569; 71045; 74177; 76830; 76856; 76937; 80048; 80053; 80202; 81001; 82565; 83605; 83690; 83735; 84100; 84145; 84520; 85025; 85610; 85730; 86592; 86703; 87081; 87591; 96374; 96375; J0744; J1885; J2060; J2270; J2405; J2543; J3250; J3370; J3475; J3480; J7030; J7042; Q9967

== ENCOUNTER → 2018-09-03 | Outpatient (CLI) | payer OTHER ==
[~2018-09-03] MED LIST: HYDR-3609 PO; IOHEXOL 300MG/ML 150 ML BTL ONE; NAPR-985 PO; SOD CHLORIDE 0.9% 100 ML ONE
== END | disposition home or self-care (01) ==
LOC: C/S 10:15
PROVIDERS: ATTEND Internal Medicine
DX: K57.92 Diverticulitis of intestine, part unspecified, without perforation or abscess without bleeding (principal)
CPT/HCPCS: 74177; Q9967